=== PATIENT | female | born 1935 | race Caucasian/White ===

== ENCOUNTER 2017-09-10 20:16 | Emergency (ER) | payer OTHER ==
[2017-09-10] MEDS ORDERED: SOLIFENACIN SUCCIN 5 MG TAB ONE (21:40)
--- NOTE | 2017-09-10 21:50 | RAD REPORT ---
EXAM DESCRIPTION: Leo Single View09/10/2017 9:27 pm CLINICAL HISTORY: Chest pain COMPARISON: April 2017 FINDINGS: The lungs appear clear of acute infiltrate. The heart is mildly enlarged IMPRESSION: No acute abnormalities displayed
[2017-09-10 21:58] LABS: Absolute Lymphocytes (CBC) 1.1 K/uL (0.7-4.9); Absolute Monocytes 0.7 K/uL (0.1-1.3); Absolute Neutrophil 5.4 K/uL (1.8-8.0); Basophils % 0.9 % (0-1.3); Eosinophils % 1.9 % (0-4.4); Hematocrit 31.5 % (36.0-45.0); Lymphocytes % 14.3 % (15.3-44.8); MCH 29.4 pg (27.0-35.0); MCV 87.9 fL (80-100); MPV 8.1 fL (7.6-11.3); Monocytes % 9.7 % (3.3-12.3); RBC Red Blood Cell Count 3.58 M/uL (3.86-4.86)
[2017-09-10 22:04] LABS: Protime INR 1.23
[2017-09-10 22:17] LABS: Albumin 3.6 g/dL (3.2-5.5); Bilirubin Direct 0.1 mg/dL (0-0.2); Bilirubin Total 0.6 mg/dL (0.3-1.2); Magnesium 1.8 mg/dL (1.8-2.5); Protein, Total 6.6 g/dL (6.0-8.3)
[2017-09-10 22:20] LABS: CKMB Creatine Kinase MB 5.4 ng/ml (0.3-4.0)
[2017-09-10 22:47] LABS: Thyroid Stimulating Hormone 1.58 uIU/mL (0.34-5.60)
[2017-09-10 23:01] LABS: Potassium 4.2 mEq/L (3.6-5.0)
[2017-09-10] MEDS ORDERED: DOXAZOSIN 4 MG TAB ONE (23:28)
[2017-09-10] MEDS ORDERED: DOXAZOSIN 2 MG TAB ONE (23:28)
--- NOTE | 2017-09-11 00:41 | EDPHYS ---
Physician Documentation [facility] Name: Joaquina Theodore Age: 82 yrs Sex: Female : 1935 Arrival Date: 09/10/2017 Time: 20:23 Bed 28 Private MD: ED Physician Fabrice Busby HPI: 09/10 21:19 This 82 yrs old Female presents to ER via EMS with unknown complaint. pkl 21:19 The patient presents with decreased mental status. Onset: The symptoms/episode pkl began/occurred just prior to arrival. Possible causes: low blood sugar, the patient uses insulin, the patient takes and oral hypoglycemic. The patient has experienced similar episodes in the past, a few times. Historical: - Allergies: 20:42 Lyrica; rk2 20:42 Neurontin; rk2 - PMHx: 20:42 Diabetes - IDDM; neuropathy; Hypertension; rk2 - Immunization history:: Pneumococcal vaccine status is unknown, Flu vaccine status is unknown. - Social history:: Smoking status: unknown. ROS: 21:19 Eyes: Negative for injury, pain, redness, and discharge, ENT: Negative for injury, pkl pain, and discharge, Neck: Negative for injury, pain, and swelling, Cardiovascular: Negative for chest pain, palpitations, and edema, Respiratory: Negative for shortness of breath, cough, wheezing, and pleuritic chest pain, Abdomen/GI: Negative for abdominal pain, nausea, vomiting, diarrhea, and constipation, Back: Negative for injury and pain, : Negative for injury, bleeding, discharge, and swelling, MS/Extremity: Negative for injury and deformity, Skin: Negative for injury, rash, and discoloration. 21:19 Neuro: Positive for altered mental status. Exam: 21:19 Head/Face: Normocephalic, atraumatic. Eyes: Pupils equal round and reactive to light, pkl extra-ocular motions intact. Lids and lashes normal. Conjunctiva and sclera are non-icteric and not injected. Cornea within normal limits. Periorbital areas with no swelling, redness, or edema. ENT: Nares patent. No nasal discharge, no septal abnormalities noted. Tympanic membranes are normal and external auditory canals are clear. Oropharynx with no redness, swelling, or masses, exudates, or evidence of obstruction, uvula midline. Mucous membranes moist. Neck: Trachea midline, no thyromegaly or masses palpated, and no cervical lymphadenopathy. Supple, full range of motion without nuchal rigidity, or vertebral point tenderness. No Meningismus. Chest/axilla: Normal chest wall appearance and motion. Nontender with no deformity. No lesions are appreciated. Cardiovascular: Regular rate and rhythm with a normal S1 and S2. No gallops, murmurs, or rubs. Normal PMI, no JVD. No pulse deficits. Respiratory: Lungs have equal breath sounds bilaterally, clear to auscultation and percussion. No rales, rhonchi or wheezes noted. No increased work of breathing, no retractions or nasal flaring. Abdomen/GI: Soft, non-tender, with normal bowel sounds. No distension or tympany. No guarding or rebound. No evidence of tenderness throughout. Back: No spinal tenderness. No costovertebral tenderness. Full range of motion. Skin: Warm, dry with normal turgor. Normal color with no rashes, no lesions, and no evidence of cellulitis. MS/ Extremity: Pulses equal, no cyanosis. Neurovascular intact. Full, normal range of motion. 21:19 Neuro: Orientation: is normal, Mentation: is normal, Cranial nerves: grossly normal, Cerebellar function: normal finger to nose testing, heel to oro testing is normal, Motor: is normal, Sensation: is normal. Vital Signs: 20:42 BP 126 / 48; Pulse 58; Resp 17; Pulse Ox 98% on R/A; rk2 22:04 Pulse 54; Resp 16; Pulse Ox 97% ; tl3 22:32 BP 191 / 75; Pulse 53; Resp 17; Pulse Ox 98% ; rk2 23:00 BP 170 / 70; Pulse 62; Resp 17; Pulse Ox 99% on R/A; rk2 09/11 00:55 BP 182 / 84; Pulse 64; Resp 17; Pulse Ox 97% on R/A; rk2 MDM: 09/10 20:48 Patient medically screened. pkl 09/11 00:38 Data reviewed: vital signs, nurses notes, lab test result(s), EKG, radiologic studies, pkl plain films. ED course: Patient alert and not in any distress. Ambulate without any difficulty. . 09/10 21:14 Order name: Basic Metabolic Panel; Complete Time: 23:03 pkl 09/10 21:14 Order name: BNP; Complete Time: 22:23 [facility] 09/10 21:14 Order name: CBC with Diff; Complete Time: 22:23 [facility] 09/10 21:14 Order name: Ckmb; Complete Time: 23:03 [facility] 09/10 21:14 Order name: CPK; Complete Time: 23:03 [facility] 09/10 21:14 Order name: LFT's; Complete Time: 23:03 [facility] 09/10 21:14 Order name: Magnesium; Complete Time: 23:03 [facility] 09/10 21:14 Order name: PT-INR; Complete Time: 22:23 [facility] 09/10 21:14 Order name: Ptt, Activated; Complete Time: :23 [facility] 09/10 21:14 Order name: Troponin (emerg Dept Use Only); Complete Time: : [facility] 09/10 21:14 Order name: Hemoglobin A1c [facility] 09/10 21:14 Order name: TSH; Complete Time: 23:03 [facility] 09/10 22:28 Order name: Glucose, Ancillary Testing; Complete Time: 23:01 EDDC 09/10 22:28 Order name: Glucose, Ancillary Testing; Complete Time: 23:01 EDMS 09/10 21:14 Order name: XRAY Chest (1 view); Complete Time: 22:23 [facility] 09/10 21:14 Order name: EKG; Complete Time: 21:14 [facility] 09/10 21:14 Order name: Cardiac monitoring; Complete Time: 21:58 [facility] 09/10 21:14 Order name: EKG - Nurse/Tech; Complete Time: 22:02 [facility] 09/10 21:14 Order name: IV Saline Lock; Complete Time: :52 [facility] 09/10 21:14 Order name: Labs collected and sent; Complete Time: 21:52 [facility] 09/10 21:14 Order name: O2 Per Protocol; Complete Time: :52 [facility] 09/10 23:11 Order name: Glucose, Ancillary Testing EDDC 09/11 00:13 Order name: Urine Dipstick--Ancillary (enter results); Complete Time: 01:09 2 09/11 00:25 Order name: Glucose, Ancillary Testing; Complete Time: 00:41 EDMS 09/10 21:14 Order name: O2 Sat Monitoring; Complete Time: 21:52 [facility] 09/10 21:14 Order name: Urine Dipstick-Ancillary (obtain specimen); Complete Time: 00:39 pkl 09/10 21:14 Order name: Accucheck: q hourly; Complete Time: 22:02 pkl Administered Medications: 09/10 21:13 CANCELLED (Other Intervention Used): Myrbetriq 25 mg PO once; swallow whole; do not bb crush, chew, break, dissolve, or cut 22:00 Drug: Vesicare 10 mg Route: PO; 3 09/11 00:42 Follow up: Response: No adverse reaction 2 09/10 22:00 Drug: NS 0.9% 1000 ml Route: IV; Rate: 125 ml/hr; Site: right hand; 3 09/11 00:42 Follow up: IV Status: Completed infusion rk2 00:42 Follow up: Response: No adverse reaction 2 09/10 23:25 Drug: Doxazosin 6 mg Route: PO; rk2 09/11 00:41 Follow up: Response: No adverse reaction; Blood pressure is lowered 2 09/10 23:26 CANCELLED (Not available ): Benicar 40 mg PO once rk2 23:27 CANCELLED (Not available ): Myrbetriq 50 mg PO once; swallow whole; do not crush, chew, rk2 break, dissolve, or cut Point of Care Testing: Blood Glucose: 20:37 Blood Glucose: 187 mg/dL; rk2 21:50 Blood Glucose: 131 mg/dL; tl3 23:07 Blood Glucose: 145 mg/dL; rk2 09/11 00:24 Blood Glucose: 184 mg/dL; rk2 Ranges: Critical Glucose Levels:Adult <50 mg/dl or >400 mg/dl <40 mg/dl or >180 mg/dl Disposition: 09/11/17 00:40 Discharged to Home. Impression: Hypoglycemia episode. - Condition is Stable. - Medication Reconciliation Form, Thank You Letter, Antibiotic Education, Prescription Opioid Use form. - Follow up: Private Physician; When: 1 - 2 days; Reason: Re-evaluation by your physician. - Problem is new. - Symptoms have improved. Signatures: Dispatcher [employer] EDFabrice Falcon MD MD pkl Ballard, Brenda RN RN Angelica Tijerina RN RN rk2 Adelaide, Chari, RN RN tl3 Corrections: (The following items were deleted from the chart) 09/10 21:13 21:12 Myrbetriq Extended Release 24 hour Tablet 25 mg PO once; swallow whole; do not bb crush, chew, break, dissolve, or cut ordered. 22:59 Benicar 40 mg PO once ordered. rk2 rk2 : 21:13 Myrbetriq Extended Release 24 hour Tablet 50 mg PO once; swallow whole; do not rk2 crush, chew, break, dissolve, or cut ordered. 22:02 Myrbetriq Extended Release 24 hour Tablet 50 mg PO once; swallow whole; do not rk2 crush, chew, break, dissolve, or cut ordered. tl3
--- NOTE | 2017-09-11 00:41 | ER ---
Nurse's Notes [facility] Name: Joaquina Theodore Age: 82 yrs Sex: Female : 1935 Arrival Date: 09/10/2017 Time: 20:23 Bed 28 Private MD: Diagnosis: Hypoglycemia episode Presentation: 09/10 20:39 Presenting complaint: EMS states: Pt. arrived by EMS, was found ALOC in her car in rk2 front of [facility]... Per EMS BS \T\ that time was 41. D50 and D10 was given. Pt. became oriented once she was in route to hospital. Upon arrival to ED FSBG noted to be 187. Pt. has hx of IDDM. Transition of care: patient was not received from another setting of care. Onset of symptoms. Care prior to arrival: IV initiated. 20 GA, in the right hand, Glucose check: 41. 20:39 Method Of Arrival: EMS: [facility] rk2 20:39 Acuity: DEYVI 3 rk2 Triage Assessment: 20:42 General: Appears in no apparent distress. obese, well groomed, well developed, well rk2 nourished, Behavior is uncooperative. Pain: Denies pain. Historical: - Allergies: 20:42 Lyrica; rk2 20:42 Neurontin; rk2 - PMHx: 20:42 Diabetes - IDDM; neuropathy; Hypertension; rk2 - Immunization history:: Pneumococcal vaccine status is unknown, Flu vaccine status is unknown. - Social history:: Smoking status: unknown. Screenin:58 Abuse screen: Denies threats or abuse. Nutritional screening: No deficits noted. tl3 Tuberculosis screening: No symptoms or risk factors identified. Fall Risk None identified. Assessment: 21:30 Reassessment: Pt. resting in room with family \T\ bedside. Pt. appears to be in no rk2 obvious distress. Alert and oriented. Pt. was given orange juice, crackers and peanut butter. 23:15 Reassessment: Pt. resting in room \T\ this time... family \T\ bedside. Pt. is alert and rk 2 oriented. Was given crackers and peanut butter, juice. Pt. appears to be in no obvious distress \T\ this time. 09/11 00:36 Reassessment: Ambulated pt. with walker; which pt. normally uses \T\ home. Pt. is full rk2 weight bearing and ambulated without difficulty. Vital Signs: 09/10 20:42 BP 126 / 48; Pulse 58; Resp 17; Pulse Ox 98% on R/A; rk2 22:04 Pulse 54; Resp 16; Pulse Ox 97% ; tl3 22:32 BP 191 / 75; Pulse 53; Resp 17; Pulse Ox 98% ; rk2 23:00 BP 170 / 70; Pulse 62; Resp 17; Pulse Ox 99% on R/A; rk2 09/11 00:55 BP 182 / 84; Pulse 64; Resp 17; Pulse Ox 97% on R/A; rk2 ED Course: 09/10 20:23 Patient arrived in ED. rk2 20:39 Angelica Lyons RN is Primary Nurse. rk2 20:41 Triage completed. rk2 20:42 Arm band placed on right wrist. rk2 20:47 Fabrice Busby MD is Attending Physician. pkl 21:25 XRAY Chest (1 view) In Process Unspecified. EDMS 21:50 No provider procedures requiring assistance completed. Maintain EMS IV. Dressing tl3 intact. Good blood return noted. Site clean \T\ dry. Gauge \T\ site: 20 g to right hand. 21:58 Patient has correct armband on for positive identification. Placed in gown. Bed in low tl3 position. Call light in reach. Side rails up X2. Adult w/ patient. Warm blanket given. 21:58 Initial lab(s) drawn, by me, sent to lab. tl3 22:02 TSH Sent. tl3 22:02 Hemoglobin A1c Sent. tl3 22:02 Magnesium Sent. tl3 22:02 PT-INR Sent. tl3 22:02 Ptt, Activated Sent. tl3 22:02 Troponin (emerg Dept Use Only) Sent. tl3 22:03 Basic Metabolic Panel Sent. tl3 22:03 BNP Sent. tl3 22:03 Ckmb Sent. tl3 22:03 CPK Sent. tl3 22:03 LFT's Sent. tl3 09/11 01:02 IV discontinued. rk2 Administered Medications: 09/10 21:13 CANCELLED (Other Intervention Used): Myrbetriq 25 mg PO once; swallow whole; do not bb crush, chew, break, dissolve, or cut 22:00 Drug: Vesicare 10 mg Route: PO; 3 09/11 00:42 Follow up: Response: No adverse reaction rk2 09/10 22:00 Drug: NS 0.9% 1000 ml Route: IV; Rate: 125 ml/hr; Site: right hand; tl3 09/11 00:42 Follow up: IV Status: Completed infusion rk2 00:42 Follow up: Response: No adverse reaction rk2 09/10 23:25 Drug: Doxazosin 6 mg Route: PO; rk2 09/11 00:41 Follow up: Response: No adverse reaction; Blood pressure is lowered rk2 09/10 23:26 CANCELLED (Not available ): Benicar 40 mg PO once rk2 23: CANCELLED (Not available ): Myrbetriq 50 mg PO once; swallow whole; do not crush, chew, rk2 break, dissolve, or cut Point of Care Testing: Blood Glucose: 20:37 Blood Glucose: 187 mg/dL; rk2 21:50 Blood Glucose: 131 mg/dL; tl3 23:07 Blood Glucose: 145 mg/dL; rk2 09/11 00:24 Blood Glucose: 184 mg/dL; rk2 Ranges: Outcome: 00:40 Discharge ordered by . gurmeet 01:02 Discharged to home via wheelchair. rk2 01:02 Condition: good 01:02 Discharge instructions given to patient. 01:03 Patient left the ED. rk2 Signatures: Dispatcher [employer] Fabrice Guaman MD MD pkl Kidder, Rhonda RN RN rk2 Chari Bryson RN RN tl3 Jessica Quinonez RN bb
[2017-09-11 01:01] LABS: Urine Blood TRACE (NEG); Urine Glucose TRACE (NEG); Urine Protein 1+ (NEG); Urine Specific Gravity 1.015 (1.005-1.030); Urine pH 5.5 (5.0-7.0)
[2017-09-11 12:50] LABS: A1c Component 0.54 mg/dL; Hemoglobin A1c 6.9 % (4-6.0)
--- NOTE | 2017-09-11 16:29 | EKG ---
Test Date: 2017-09-10 Test Time: 22:09:29 Welder Railcar Mechanic: ERIKA MEASUREMENT RESULTS: Intervals: Rate: 55 NC: 162 QRSD: 88 QT: 482 QTc: 461 [place]: P: 6 NC: 162 QRS: -3 T: 62 INTERPRETIVE STATEMENTS: Sinus bradycardia Possible Left atrial enlargement Borderline ECG Compared to ECG 04/24/2017 12:20:37 Left anterior fascicular block no longer present Electronically Signed On 09-11-17 16:25:14 CDT by Alex Palomo
== END 2017-09-11 01:03 | disposition home or self-care (01) ==
LOC: ER 20:16
DX: Z88.8 Allergy status to other drugs, medicaments and biological substances; I10 Essential (primary) hypertension; E11.649 Type 2 diabetes mellitus with hypoglycemia without coma; Z79.84 Long term (current) use of oral hypoglycemic drugs; Z79.4 Long term (current) use of insulin
CPT/HCPCS: 36415; 71045; 80048; 80076; 81003; 82550; 82553; 82962; 83036; 83735; 83880; 84443; 84484; 85025; 85610; 85730; 93005; 96360; 96361; 99284

== ENCOUNTER 2017-09-21 16:37 | Emergency (ER) | payer OTHER ==
--- NOTE | 2017-09-21 18:24 | EKG ---
Test Date: 2017-09-21 Test Time: 18:17:27 Hotel Maintenance Worker: RANDAL MEASUREMENT RESULTS: Intervals: Rate: 68 TX: 150 QRSD: 80 QT: 432 QTc: 459 [place]: P: 33 TX: 150 QRS: -38 T: 42 INTERPRETIVE STATEMENTS: Normal sinus rhythm Left axis deviation Abnormal ECG Compared to ECG 09/10/2017 22:09:29 Left-axis deviation now present Sinus bradycardia no longer present Electronically Signed On 09-21-17 18:23:46 CDT by Kam Colmenares
--- NOTE | 2017-09-21 18:48 | RAD REPORT ---
EXAM DESCRIPTION: Leo Single View09/21/2017 6:36 pm CLINICAL HISTORY: Chest pain COMPARISON: April 2017 FINDINGS: The lungs appear clear of acute infiltrate. The heart is mildly enlarged IMPRESSION: No acute abnormalities displayed
--- NOTE | 2017-09-21 18:54 | RAD REPORT ---
EXAM DESCRIPTION: CT - Head Brain Wo Cont - 09/21/2017 6:30 pm CLINICAL HISTORY: Slurred speech and confusion COMPARISON: April 2017 TECHNIQUE: Computed axial tomography of the head was obtained. IV contrast was not requested. All CT scans are performed using dose optimization technique as appropriate and may include automated exposure control or mA/KV adjustment according to patient size. FINDINGS: An intracranial bleed is not seen . Cerebral atrophy is present. The ventricles are mildly prominent No extra-axial fluid collection is noted. Fluid within the sinuses/ mastoids is not seen. IMPRESSION: Mild prominence of the ventricles probably related to white matter atrophy. Normal press ure hydrocephalus can have this appearance and should be correlated clinically.
[2017-09-21 19:11] LABS: Absolute Lymphocytes (CBC) 0.7 K/uL (0.7-4.9); Absolute Monocytes 0.5 K/uL (0.1-1.3); Absolute Neutrophil 6.5 K/uL (1.8-8.0); Basophils % 0.5 % (0-1.3); Eosinophils % 0.4 % (0-4.4); Lymphocytes % 9.2 % (15.3-44.8); MCH 29.2 pg (27.0-35.0); MCV 88.2 fL (80-100); Monocytes % 6.9 % (3.3-12.3); RBC Red Blood Cell Count 3.63 M/uL (3.86-4.86)
[2017-09-21 19:22] LABS: Potassium 4.5 mEq/L (3.6-5.0)
[2017-09-21 19:26] LABS: Magnesium 1.9 mg/dL (1.8-2.5)
[2017-09-21 19:27] LABS: Protime INR 1.14
[2017-09-21 19:28] LABS: Albumin 3.5 g/dL (3.2-5.5); Bilirubin Direct 0.1 mg/dL (0-0.2); Bilirubin Total 0.5 mg/dL (0.3-1.2); Protein, Total 6.2 g/dL (6.0-8.3)
[2017-09-21] MEDS ORDERED: CARVEDILOL 6.25 MG TAB ONE (19:38)
[2017-09-21 19:41] LABS: Urine Blood TRACE (NEG); Urine Glucose TRACE (NEG); Urine Protein 1+ (NEG)
[2017-09-21] MEDS ORDERED: DOXAZOSIN 2 MG TAB ONE (19:55)
[2017-09-21] MEDS ORDERED: CLOPIDOGREL 75 MG TABLET ONE (19:55)
[2017-09-21] MEDS ORDERED: APIXABAN 5 MG TABLET ONE (19:59)
--- NOTE | 2017-09-21 21:18 | ER ---
Nurse's Notes [facility] Name: Joaquina Theodore Age: 82 yrs Sex: Female : 1935 Arrival Date: 09/21/2017 Time: 16:45 Bed 26 Private MD: Diagnosis: Hypoglycemia, unspecified Presentation: 09/21 16:47 Presenting complaint: Patient states: Brother in law found patient laying on floor. Pt ss states, "I was on the floor a long time." On EMS arrival, patient was confused, slurred speech . BGL is 56 on arrival to pt's home. After administering 250 mL of D10, pt's repeat blood sugar was 454. Pt is awake and alert on arrival to ED. Transition of care: patient was not received from another setting of care. Onset of symptoms is unknown. Care prior to arrival: Medication(s) given: 250 mL of D10 IV initiated. 18 GA, in the left antecubital area, Glucose check: 189. 16:47 Method Of Arrival: EMS: [facility] ss 16:47 Acuity: DEYVI 3 ss Historical: - Allergies: 16:50 Lyrica; ss 16:50 Neurontin; ss - PMHx: 16:50 neuropathy; Hypertension; Diabetes - IDDM; ss - Immunization history:: Adult Immunizations up to date. - Social history:: Smoking status: Patient/guardian denies using tobacco, but has a distant history of tobacco abuse. Screenin:05 Abuse screen: Denies threats or abuse. Denies injuries from another. Nutritional aj1 screening: No deficits noted. Tuberculosis screening: No symptoms or risk factors identified. 21:46 Fall Risk None identified. aj1 Assessment: 17:36 Reassessment: Patient refused blood work and CT scan until she is finished eating. aj1 18:07 Reassessment: heavy equipment technician and final operations technician at bedside, patient states that she has to go to the aj1 bathroom and does not want any testing done until she goes to the bathroom, offered to assist patient to the bathroom, patient becomes irritated and states "well they usually bring the potty into my room, why cant you do that?" Explained to patient that I would be more more than happy to bring her a bedside commode. Patient was placed on bedside commode, patient remains irritates states she does not understand why the TRAUMA COORDINATOR has not ordered her home blood pressure medication yet, explained to patient that I would ask provider if she could take home meds, patient remains irritated states "well I already ate and I'm suppose to take it with food, by the time you get it ordered it's going to be too late!" Explained to patient that I would ask provider if she could take home medications. Patient states she needs some privacy, patient given call verma and notified to call when she is finished using the restroom. 18:18 Reassessment: Patient assisted back to bed, final operations technician at bedside performing EKG. aj1 18:25 Reassessment: EVS at patient beside mopping patient's floor. aj1 18:26 Reassessment: Patient transported to CT via stretcher. aj1 18:46 Reassessment: Patient transported back to room via stretcher, notified patient that aj1 provider okayed her taking her home medications patient states "I didn't bring them, cant you bring them to me?" Notified provider that patient did not bring her home medications and is requesting her blood pressure medication to be ordered through the ER. 19:05 General: Appears in no apparent distress. comfortable, Behavior is calm, cooperative, aj1 appropriate for age. Pain: Denies pain. Neuro: Level of Consciousness is awake, alert, obeys commands, Oriented to person, place, time, situation, Junior Electrical Engineer are equal bilaterally Moves all extremities. Speech is normal, Facial symmetry appears normal. Cardiovascular: Patient's skin is warm and dry. Respiratory: Airway is patent Respiratory effort is even, unlabored, Respiratory pattern is regular, symmetrical. GI: No signs and/or symptoms were reported involving the gastrointestinal system. : No signs and/or symptoms were reported regarding the genitourinary system. EENT: No signs and/or symptoms were reported regarding the EENT system. Derm: No signs and/or symptoms reported regarding the dermatologic system. Skin is pink, warm \\T\\ dry. normal. Musculoskeletal: No signs and/or symptoms reported regarding the musculoskeletal system. Circulation, motion, and sensation intact. 19:29 Reassessment: Patient given her BP medications, patient states that she also forgot to aj1 take her blood thinners and she would like to have those administered while she is here as well. Notified P. Marinas, TRAUMA COORDINATOR. 19:35 Reassessment: Patient requests to see Dr. Shelton before he leaves, states that she aj1 heard he was here. Notified Dr. Shelton of patient request. 19:43 Reassessment: Dr. Shelton at bedside to evaluate patient. aj1 20:03 Reassessment: Patient appears in no apparent distress at this time. No changes from aj1 previously documented assessment. Patient and/or family updated on plan of care and expected duration. Pain level reassessed. Patient is alert, oriented x 3, equal unlabored respirations, skin warm/dry/pink. 21:00 Reassessment: Patient appears in no apparent distress at this time. No changes from aj1 previously documented assessment. Patient and/or family updated on plan of care and expected duration. Pain level reassessed. Patient is alert, oriented x 3, equal unlabored respirations, skin warm/dry/pink. Vital Signs: 16:46 BP 149 / 89; Pulse 65; Resp 21; Pulse Ox 100% on R/A; Weight 86.18 kg; Height 5 ft. 2 ss in. (157.48 cm); Pain 0/10; 19:05 BP 157 / 92; Pulse 58; Resp 18; Pulse Ox 96% on R/A; aj1 20:03 BP 134 / 68; Pulse 62; Resp 18; Pulse Ox 96% on R/A; aj1 21:45 BP 183 / 75; Pulse 72; Resp 18; Pulse Ox 95% on R/A; aj1 16:46 Body Mass Index 34.75 (86.18 kg, 157.48 cm) ED Course: 16:45 Patient arrived in ED. ss 16:46 Arm band placed on left wrist. ss 16:49 Triage completed. ss 16:58 Talon Ruiz, MAEGAN is PHCP. pm1 16:58 Jaya Shelton MD is Attending Physician. pm1 17:19 Tarah Marroquin, MARY CARMEN is Primary Nurse. aj1 17:35 Radiology exam delayed due to PATIENT WANTS TO FINISH EATING BEFORE EXAM. ml 17:36 Note: Patient refusing to come down at this time due to wanting to finish her dinner. jg1 17:37 Radiology exam delayed due to. jg1 18:04 Radiology exam delayed due to pt on bedside toilet. jg1 18:21 EKG done, by final operations technician. reviewed by Talon Ruiz NP. at1 18:[address] via stretcher. nj 18:29 CT completed. Patient tolerated procedure well. Patient moved back from CT. nj 18:31 CT Head Brain wo Cont In Process Unspecified. EDMS 18:34 X-ray completed. Portable x-ray completed in exam room. Patient tolerated procedure ml well. 18:35 XRAY Chest (1 view) In Process Unspecified. EDMS 19:00 Maintain EMS IV. Dressing intact. Good blood return noted. Site clean \\T\\ dry. Gauge \\T\\ aj 1 site: 18 g left AC. 19:00 Initial lab(s) drawn, by me, sent to lab. aj1 19:05 Patient has correct armband on for positive identification. Bed in low position. Call aj1 light in reach. Side rails up X 1. 19:05 No provider procedures requiring assistance completed. aj1 21:45 IV discontinued, intact, bleeding controlled, No redness/swelling at site. Pressure aj1 dressing applied. Administered Medications: 19:27 Drug: carvedilol 25 mg Route: PO; aj1 20:02 Follow up: Response: No adverse reaction aj1 20:00 Drug: Doxazosin 6 mg Route: PO; aj1 20:25 Follow up: Response: No adverse reaction aj1 20:01 Drug: Eliquis 5 mg Route: PO; aj1 20:27 Follow up: Response: No adverse reaction aj1 20:01 Drug: PlaVIX 75 mg Route: PO; aj1 20:28 Follow up: Response: No adverse reaction aj1 Point of Care Testing: Blood Glucose: 16:46 Blood Glucose: 189 mg/dL; ss 20:23 Blood Glucose: 168 mg/dL; dh3 Ranges: Outcome: 21:17 Discharge ordered by MD. pm1 21:46 Discharged to home via wheelchair. aj1 21:46 Condition: good 21:46 Discharge instructions given to patient, family, Instructed on discharge instructions, follow up and referral plans. Demonstrated understanding of instructions, follow-up care. 21:46 Patient left the ED. aj1 Signatures: Dispatcher [employer] EDMS Tarah Marroquin RN RN aj1 Renetta Archuleta Melissa ml Smirch, Shelby, RN RN Karmen robertson, sports umpire EKG Tat1 Talon Ruiz NP TRAUMA COORDINATOR pm1 Sam Estrada Deanna 3 Corrections: (The following items were deleted from the chart) 19:07 18:30 Maintain EMS IV. Dressing intact. Good blood return noted. Site clean \\T\\ dry. aj1 Gauge \\T\\ site: 18 g left AC. aj1
--- NOTE | 2017-09-21 21:18 | EDPHYS ---
Physician Documentation [facility] Name: Joaquina Theodore Age: 82 yrs Sex: Female : 1935 Arrival Date: 09/21/2017 Time: 16:45 Bed 26 Private MD: ED Physician Jaya hSelton HPI: 09/21 19:00 This 82 yrs old Female presents to ER via EMS with complaints of Low Blood pm1 Sugar. 19:00 The patient or guardian reports hypoglycemia, that was potentially precipitated by Not pm1 eating food, Treatment prior to arrival includes: EMS administered D50. 19:00 Treatment prior to arrival includes: EMS checked blood sugar on arrival, which was 56, pm1 after treatment, the blood sugar was 454, ER arrival finger glucose test 189. Onset: The symptoms/episode began/occurred today. Associated signs and symptoms: Pertinent negatives: seizure activity. Current symptoms: In the emergency department the patient's symptoms have resolved, the patient is alert and fully oriented, has normal speech, has normal responsiveness, has no confusion. The patient has experienced similar episodes in the past, several times, Patient takes her diabetes medications without checking her blood sugars. Patient did not eat since 0430 today. Patient last took her insulin and glimepride at 1700 yesterday. Patient took Januvia at 0430. Today patient presents with contusion to the back of her head. Patient denies any headache or neck pain. Patient does not recall fall but was found on the floor by her daughter with low blood sugar. Patient was given D10 250 mL by EMS for an initial blood sugar of 56. They rechecked it in route prior to arrival and it was 454. ER arrival blood sugar was 189. Patient arrived to ER without any complaints. No chest pain, shortness of breath, dizziness, or headache. Historical: - Allergies: 16:50 Lyrica; ss 16:50 Neurontin; ss - PMHx: 16:50 neuropathy; Hypertension; Diabetes - IDDM; ss - Immunization history:: Adult Immunizations up to date. - Social history:: Smoking status: Patient/guardian denies using tobacco, but has a distant history of tobacco abuse. ROS: 19:00 Constitutional: Negative for fever, chills, and weight loss, Eyes: Negative for injury, pm1 pain, redness, and discharge, ENT: Negative for injury, pain, and discharge, Neck: Negative for injury, pain, and swelling, Cardiovascular: Negative for chest pain, palpitations, and edema, Respiratory: Negative for shortness of breath, cough, wheezing, and pleuritic chest pain, Abdomen/GI: Negative for abdominal pain, nausea, vomiting, diarrhea, and constipation, Back: Negative for injury and pain, : Negative for injury, bleeding, discharge, and swelling, MS/Extremity: Negative for injury and deformity, Skin: Negative for injury, rash, and discoloration, Neuro: Negative for headache, weakness, numbness, tingling, and seizure. Exam: 19:00 Constitutional: This is a well developed, well nourished patient who is awake, alert, pm1 and in no acute distress. Eyes: Pupils equal round and reactive to light, extra-ocular motions intact. Lids and lashes normal. Conjunctiva and sclera are non-icteric and not injected. Cornea within normal limits. Periorbital areas with no swelling, redness, or edema. ENT: Nares patent. No nasal discharge, no septal abnormalities noted. Tympanic membranes are normal and external auditory canals are clear. Oropharynx with no redness, swelling, or masses, exudates, or evidence of obstruction, uvula midline. Mucous membranes moist. Neck: Trachea midline, no thyromegaly or masses palpated, and no cervical lymphadenopathy. Supple, full range of motion without nuchal rigidity, or vertebral point tenderness. No Meningismus. Chest/axilla: Normal chest wall appearance and motion. Nontender with no deformity. No lesions are appreciated. Cardiovascular: Regular rate and rhythm with a normal S1 and S2. No gallops, murmurs, or rubs. Normal PMI, no JVD. No pulse deficits. Respiratory: Lungs have equal breath sounds bilaterally, clear to auscultation and percussion. No rales, rhonchi or wheezes noted. No increased work of breathing, no retractions or nasal flaring. Abdomen/GI: Soft, non-tender, with normal bowel sounds. No distension or tympany. No guarding or rebound. No evidence of tenderness throughout. Back: No spinal tenderness. No costovertebral tenderness. Full range of motion. Skin: Warm, dry with normal turgor. Normal color with no rashes, no lesions, and no evidence of cellulitis. MS/ Extremity: Pulses equal, no cyanosis. Neurovascular intact. Full, normal range of motion. 19:00 Head/face: Noted is contusion, that is superficial, of the right side of the back of head. 19:00 Neuro: Orientation: is normal, Mentation: is normal, Motor: is normal, moves all fours, strength is normal, strength is 5/5 in all extremities. Vital Signs: 16:46 BP 149 / 89; Pulse 65; Resp 21; Pulse Ox 100% on R/A; Weight 86.18 kg; Height 5 ft. 2 ss in. (157.48 cm); Pain 0/10; 19:05 BP 157 / 92; Pulse 58; Resp 18; Pulse Ox 96% on R/A; aj1 20:03 BP 134 / 68; Pulse 62; Resp 18; Pulse Ox 96% on R/A; aj1 21:45 BP 183 / 75; Pulse 72; Resp 18; Pulse Ox 95% on R/A; aj1 16:46 Body Mass Index 34.75 (86.18 kg, 157.48 cm) ss MDM: 17:00 Patient medically screened. pm1 17:42 Data reviewed: vital signs. Data interpreted: Pulse oximetry: on room air is 100 %. pm1 Interpretation: normal. 19:30 ED course: Patient evaluated by Dr Shelton and advised to stop taking Glimepiride due pm1 to hypoglycemia risk. 20:02 ED course: Last dosage of medications for diabetes were greater than 24 hours ago. pm1 21:14 Counseling: I had a detailed discussion with the patient and/or guardian regarding: the pm1 historical points, exam findings, and any diagnostic results supporting the discharge/admit diagnosis, lab results. 09/21 17:09 Order name: Basic Metabolic Panel; Complete Time: 19:47 pm1 09/21 17:09 Order name: CBC with Diff; Complete Time: 19:47 pm1 09/21 17:09 Order name: Hepatic Function; Complete Time: 19:47 pm1 09/21 17:09 Order name: Lipase; Complete Time: 19:47 pm1 09/21 17:24 Order name: BNP pm1 09/21 17:24 Order name: CPK; Complete Time: 19:47 pm1 09/21 17:24 Order name: Magnesium; Complete Time: 19:47 pm1 09/21 17:24 Order name: PT-INR; Complete Time: 19:47 pm1 09/21 17:24 Order name: Ptt, Activated; Complete Time: 19:47 pm1 09/21 17:24 Order name: Troponin (emerg Dept Use Only); Complete Time: 19:47 pm1 09/21 17:25 Order name: BNP B-Type Natriuretic Peptide; Complete Time: 19:47 EDMS 09/21 19:29 Order name: Urine Dipstick--Ancillary (enter results); Complete Time: 19:47 em1 09/21 20:05 Order name: Glucose, Ancillary Testing; Complete Time: 21:05 EDMS 09/21 20:23 Order name: Glucose, Ancillary Testing; Complete Time: 21:05 EDMS 09/21 16:45 Order name: Diet Regular; Complete Time: 16:46 ss 09/21 16:46 Order name: Glucose Level; Complete Time: 16:46 ss 09/21 17:09 Order name: IV Saline Lock; Complete Time: 17:20 pm1 09/21 17:09 Order name: Labs collected and sent; Complete Time: 19:08 pm1 09/21 17:09 Order name: Urine Dipstick-Ancillary (obtain specimen); Complete Time: 19:28 pm1 09/21 17:23 Order name: CT Head Brain wo Cont; Complete Time: 19:01 pm1 09/21 17:24 Order name: XRAY Chest (1 view); Complete Time: 19:01 pm1 09/21 17:24 Order name: EKG; Complete Time: 17:25 pm1 09/21 17:24 Order name: Cardiac monitoring; Complete Time: 19:04 pm1 09/21 17:24 Order name: EKG - Nurse/Tech; Complete Time: 19:05 pm1 09/21 17:24 Order name: O2 Per Protocol; Complete Time: 18:09 pm1 09/21 17:24 Order name: O2 Sat Monitoring; Complete Time: 18:09 pm1 Administered Medications: 19:27 Drug: carvedilol 25 mg Route: PO; aj1 20:02 Follow up: Response: No adverse reaction aj1 20:00 Drug: Doxazosin 6 mg Route: PO; aj1 20:25 Follow up: Response: No adverse reaction aj1 20:01 Drug: Eliquis 5 mg Route: PO; aj1 20:27 Follow up: Response: No adverse reaction aj1 20:01 Drug: PlaVIX 75 mg Route: PO; aj1 20:28 Follow up: Response: No adverse reaction aj1 Point of Care Testing: Blood Glucose: 16:46 Blood Glucose: 189 mg/dL; ss 20:23 Blood Glucose: 168 mg/dL; dh3 Ranges: Critical Glucose Levels:Adult <50 mg/dl or >400 mg/dl <40 mg/dl or >180 mg/dl Disposition: 09/21/17 21:17 Discharged to Home. Impression: Hypoglycemia, unspecified. - Condition is Stable. - Discharge Instructions: Hypoglycemia, Blood Glucose Monitoring, Adult. - Medication Reconciliation Form, Thank You Letter form. - Follow up: Emergency Department; When: As needed; Reason: Worsening of condition. Follow up: Private Physician; When: 2 - 3 days; Reason: Recheck today's complaints, Continuance of care, Re-evaluation by your physician. - Problem is new. - Symptoms have improved. Addendum: 09/24/2017 08:43 Co-signature as Attending Physician, Jaya Shelton MD I agree with the assessment and c mclean plan of care. Signatures: Dispatcher [employer] Tarah Gaston RN RN aj1 Jaya Shelton MD MD cha Smirch, Shelby RN RN Talon Fletcher NP BODY SHOP ESTIMATOR pm1 Corrections: (The following items were deleted from the chart) 09/21 21:38 19:00 The patient or guardian reports hypoglycemia, that was potentially precipitated pm1 by Not eating food, Treatment prior to arrival includes: EMS administered D50, pm1
== END 2017-09-21 21:46 | disposition home or self-care (01) ==
LOC: ER 16:37 → SUPCPDRO 16:37 → ER 21:46
DX: E11.649 Type 2 diabetes mellitus with hypoglycemia without coma (principal); I10 Essential (primary) hypertension; Z88.8 Allergy status to other drugs, medicaments and biological substances
CPT/HCPCS: 36415; 70450; 71045; 80048; 80076; 81003; 82550; 82962; 83690; 83735; 83880; 84484; 85025; 85610; 85730; 93005; 99284

== ENCOUNTER 2019-06-15 17:13 | Inpatient (IN) | payer OTHER ==
--- OUTSIDE RECORDS SUMMARY | 2019-06-15 17:16 | XMS REPORT ---
:1935 [facility] Address [address] [place] [address] Care Team Providers Name Role Phone KELLE STERLING Unavailable Unavailable Problems This patient has no known problems. Allergies, Adverse Reactions, Alerts This patient has no known allergies or adverse reactions. Medications This patient has no known medications. Encounters Start End Encounter Admission Attending Care Care Encounter Date/Time Date/Time Type Type Clinicians Facility Department ID 2019-02-24 2019-02-24 Outpatient [facility] [id number] 09:17:00 09:17:00 Results Test Description Test Time Test Comments Text Results Atomic Results Result Comments , CARDIAC, 2018-05-22 17:50:00 Reason for FINAL REPORT PATIENT ID: WITHOUT Exam:->[id number] Cardiac MRI dated 22 May 2018 INDICATION: This is a 83 year-old female with ischaemic heart disease. This study is performed in order to quantitate left ventricular function, and to determine myocardial viability and damage. Patient indicates she has a CARDIOMEMS device that was placed in an outside facility. In addition, patient indicates she had prior PCI/stent placement. TECHNIQUE: Giuliana ACHIEVA MRI scanner. Morphologic and dynamic cine imaging were performed in multiple projections before and after contrast administration. Thereafter, gadolinium was administered, which was followed by viability/scar imaging. Finally, flow quantification sequences were performed to determine the degree of valvular dysfunction. Please refer to the contrast sheet scanned in the EPIC system for the amount and route of contrast given. Scanning blood pressure was under 133/72. Patient weighs 187 pounds, with height of 63 inches. Body surface area is 1.94 sq m. FINDINGS: The chest wall and mediastinum appears unremarkable. Trace physiologic pericardial effusion is noted. The central pulmonary artery is mildly prominent; please correlate with appropriate aetiology. Limited imaging through the lungs reveals no gross abnormalities; MR is not optimised in the assessment of pulmonary parenchymal lung disease. The cardiac chambers demonstrate normal atrioventricular and ventriculoarterial concordance, and systemic and pulmonary venous return. The thoracic aorta is normal in course, caliber, and contour. There is no evidence of acute aortic pathology, such as dissection, intramural hematoma, or contained rupture. The left ventricle is normal in size, shape, and function. Quantitative values are as follows: MSE=947 cc; ESV=52 cc; stroke volume=98 cc; and ejection fraction=65%. Calculated absolute cardiac output=4.7 liters/min. Absolute left ventricular kbmb=886 grams. No imaging evidence to suggest hypertrophic cardiomyopathy or left ventricular noncompaction. The right ventricle is normal in size and function. Quantitative values are as follows: ZNR=923 cc; ESV=44 cc; stroke volume=91 cc; and ejection fraction=67%. Calculated absolute cardiac output=4.7 liters/min. Cine imaging and flow quantification reveals suggest trace mitral and tricuspid regurgitation. Aortic valve function is unremarkable. Viability/scar imaging reveals uniformly "nulled" myocardium, indicating no prior myocardial damage. All of the left ventricular myocardium appears full thickness and viable. Ventricular thrombus is not present. Flow curves suggest normal left and right atrial pressures. Left atrial enlargement is identified. Mild right atrial prominence is noted. CONCLUSION: 1. The left ventricle is normal in size, shape, and function. Ejection fraction is quantified to be 65%. Left ventricular masses within normal limits. The cine imaging, normal systolic thickening is seen throughout the left ventricular myocardium. Quantitative left ventricular functional values are as described above. Viability/scar imaging is normal. There is no evidence of prior myocardial damage. 2. The right ventricle is normal in size and function. Quantitative right ventricular functional values are as described above. 3. Left atrial prominence. Signed: Robinson Trivedi MDReport Verified Date/Time: 05/22/2018 17:50:06 Reading Location: [place] [id number] Cardiology MRI -CREATININE 2018-05-22 15:58:00 Test Item Value Reference Range Comments POC-CREATININE (LEENAAKER) (test 1.3 mg/dL 0.6-1.[address] [facility] 6720 pkhv=[id number]) [facility] [address] POC-EGFR (BEAKER) (test worp=3142) 39 mL/min/1.73M2
[2019-06-15] MEDS ORDERED: NA CHLORIDE 0.9% 1,000 ML ONE (18:58)
[2019-06-15 19:02] LABS: Basophils % 1.1 % (0-1.3); Hematocrit 33.5 % (36.0-45.0); Lymphocytes % 13.8 % (15.3-44.8); MPV 7.3 fL (7.6-11.3); RBC Red Blood Cell Count 3.77 M/uL (3.86-4.86)
[2019-06-15 19:03] LABS: Protime INR 1.32
--- NOTE | 2019-06-15 19:06 | RAD REPORT ---
EXAM DESCRIPTION: Leo Single View06/15/2019 6:14 pm CLINICAL HISTORY: cough COMPARISON: 2018 FINDINGS: The lungs appear clear of acute infiltrate. The heart is mildly enlarged IMPRESSION: No acute abnormalities displayed
[2019-06-15] MEDS ORDERED: PANTOPRAZOLE 40 MG INJ ONE (19:13)
[2019-06-15] MEDS ORDERED: CEFTRIAXONE/SWI 1gm 1 GM/10 ML SYR ONE (19:14)
[2019-06-15 19:15] LABS: Albumin 3.6 g/dL (3.4-5.0); Bilirubin Direct 0.1 mg/dL (0-0.2); Bilirubin Total 0.4 mg/dL (0.2-1.0); Magnesium 1.5 mg/dL (1.8-2.4); Potassium 3.7 mmol/L (3.5-5.1); Protein, Total 7.4 g/dL (6.4-8.2)
--- NOTE | 2019-06-15 19:31 | ER ---
Nurse's Notes [facility] Name: Joaquina Theodore Age: 84 yrs Sex: Female : 1935 Arrival Date: 06/15/2019 Time: 17:14 Bed 10 Private MD: Shelli Aernas C Diagnosis: Weakness;Urinary tract infection, site not specified;Anemia, unspecified;Diarrhea, unspecified;Type 1 diabetes mellitus;Hypomagnesemia;Retention of urine-PVR GREATER THAN 1 LITER Presentation: 06/15 17:46 Presenting complaint: Patient states: Diarrhea intermittently for several months. rb1 Denies N/V and fever. Transition of care: patient was not received from another setting of care. Onset of symptoms is unknown. 17:46 Method Of Arrival: Wheelchair rb1 17:46 Acuity: DEYVI 3 rb1 18:30 Risk Assessment: Do you want to hurt yourself or someone else? Patient reports no em desire to harm self or others. Initial Sepsis Screen: Does the patient meet any 2 criteria? No. Patient's initial sepsis screen is negative. Does the patient have a suspected source of infection? No. Patient's initial sepsis screen is negative. Care prior to arrival: None. Triage Assessment: 17:46 General: Appears in no apparent distress. comfortable, Behavior is calm, cooperative, rb1 Denies fever. Pain: Complains of pain in bilateral hips and legs Pain currently is 3 out of 10 on a pain scale. Neuro: Level of Consciousness is awake, alert, obeys commands, Oriented to person, place, time, situation. Respiratory: Reports shortness of breath on exertion Airway is patent Respiratory effort is even, unlabored, Respiratory pattern is regular, symmetrical. GI: Reports diarrhea. Derm: Skin is pink, warm \T\ dry. Musculoskeletal: Range of motion: intact in all extremities. Historical: - Allergies: 17:46 Lyrica; rb1 17:46 Neurontin; rb1 - Home Meds: 19:29 metformin 500 mg Oral tab [Active]; isosorbide mononitrate 60 mg Oral Tb24 [Active]; em pravastatin 20 mg oral tab [Active]; Cymbalta 60 mg oral cpDR [Active]; carvedilol 25 mg oral tab [Active]; Januvia 100 mg oral tab [Active]; Benicar 40 mg oral tab [Active]; clopidogrel 75 mg oral tab [Active]; Eliquis 5 mg oral tab 1 tab 2 times per day [Active]; magnesium gluconate 27.5 mg (500 mg) oral tab [Active]; furosemide 40 mg Oral tab [Active]; Vesicare 10 mg oral tab 1 tab once daily [Active]; Myrbetriq 50 mg oral Tb24 1 tab once daily [Active]; - PMHx: 17:46 Diabetes - IDDM; Hypertension; neuropathy; rb1 - PSHx: 17:46 bilateral knees; rb1 - Immunization history:: Adult Immunizations up to date. - Social history:: Smoking status: Patient/guardian denies using tobacco. - Ebola Screening: : Patient negative for fever greater than or equal to 101.5 degrees Fahrenheit, and additional compatible Ebola Virus Disease symptoms. - Family history:: not pertinent. Screenin:30 Abuse screen: Denies threats or abuse. Nutritional screening: No deficits noted. em Tuberculosis screening: No symptoms or risk factors identified. Fall Risk None identified. Assessment: 18:30 General: Appears in no apparent distress. comfortable, Behavior is calm, cooperative, em Denies fever. Pain: Complains of pain in pelvis Pain currently is 3 out of 10 on a pain scale. Neuro: Level of Consciousness is awake, alert, obeys commands, Oriented to person, place, time, situation, Appropriate for age. Cardiovascular: Denies chest pain, Capillary refill < 3 seconds Patient's skin is warm and dry. Respiratory: Airway is patent Respiratory effort is even, unlabored, Respiratory pattern is regular, symmetrical. GI: Reports diarrhea, Patient currently denies nausea, vomiting. Derm: Skin is intact, is thin, Skin is dry, Skin is pale. Musculoskeletal: Capillary refill < 3 seconds, Range of motion: intact in all extremities. 18:35 General: The previous assessment is accurate. Call light remains within reach.. ss 19:15 Reassessment: Patient appears in no apparent distress at this time. Patient and/or wh family updated on plan of care and expected duration. Pain level reassessed. Patient is alert, oriented x 3, equal unlabored respirations, skin warm/dry/pink. 19:45 Reassessment: Patient appears in no apparent distress at this time. Patient and/or wh family updated on plan of care and expected duration. Pain level reassessed. Patient is alert, oriented x 3, equal unlabored respirations, skin warm/dry/pink. PT BP elevated, notified MD Pt requesting to take home meds. Approval given by Pt took Bp meds with sister assistance. 20:30 Reassessment: Patient appears in no apparent distress at this time. No changes from previously documented assessment. Patient and/or family updated on plan of care and expected duration. Pain level reassessed. Patient is alert, oriented x 3, equal unlabored respirations, skin warm/dry/pink. Dinner provided, home meds were given by sister as per instruction from PCP Arenas she take her own meds. Pt took BP med and Diabetes med. 21:30 Reassessment: Patient appears in no apparent distress at this time. No changes from previously documented assessment. Patient and/or family updated on plan of care and expected duration. Pain level reassessed. Patient is alert, oriented x 3, equal unlabored respirations, skin warm/dry/pink. Pt refusing EKG to be done, provider notified. 22:15 Reassessment: Patient appears in no apparent distress at this time. No changes from previously documented assessment. Patient and/or family updated on plan of care and expected duration. Pain level reassessed. Patient is alert, oriented x 3, equal unlabored respirations, skin warm/dry/pink. Repositioned Pt in bed, provided additional blankets. 23:24 Reassessment: Patient appears in no apparent distress at this time. No changes from previously documented assessment. Patient and/or family updated on plan of care and expected duration. Pain level reassessed. Patient is alert, oriented x 3, equal unlabored respirations, skin warm/dry/pink. Pt transferred to bed 10 report given to Patricia LENTZ. Vital Signs: 17:46 BP 147 / 109; Pulse 68; Resp 20; Temp 98.4(TE); Pulse Ox 100% on R/A; Weight 73.48 kg; rb1 Height 5 ft. 5 in. (165.10 cm) (R); Pain 3/10; 21:00 BP 211 / 83; Pulse 62; Resp 18; Pulse Ox 99% ; wh 21:00 BP 143 / 103; Pulse 58; Resp 18; Pulse Ox 99% ; wh 17:46 Body Mass Index 26.96 (73.48 kg, 165.10 cm) [facility] ED Course: 17:14 Patient arrived in ED. as 17:14 Shelli Arenas MD is Private Physician. as 17:46 Arm band placed on left wrist. rb1 17:48 Dalton Valero LVN is Primary Nurse. em 17:48 Jaya Shelton MD is Attending Physician. alan 18:04 Triage completed. rb1 18:13 XRAY Chest (1 view) In Process Unspecified. EDMS 18:30 Patient has correct armband on for positive identification. Bed in low position. Call em light in reach. Side rails up X2. Adult w/ patient. Pulse ox on. NIBP on. 18:45 No provider procedures requiring assistance completed. Initial lab(s) drawn, by me, em sent to lab. Inserted saline lock: 20 gauge in right antecubital area, using aseptic technique. Blood collected. 18:45 T\T\S collected, blood band applied to patient. em 19:26 Shelli Arenas MD is Hospitalizing Provider. alan 20:18 CT completed. Patient tolerated procedure well. Patient moved back from CT. bq 21:09 Nicolas cath inserted, using sterile technique, 18 Fr., by me, balloon inflated, to ok gravity drainage, clamped. urine specimen collected. 23:18 Patient admitted, IV remains in place. Administered Medications: 19:07 Drug: NS 0.9% 500 ml Route: IV; Rate: bolus; Site: right antecubital; 20:06 Follow up: Response: No adverse reaction; IV Status: Completed infusion 19:19 Drug: ProTONIX 40 mg Route: IVP; Site: right antecubital; 20:05 Follow up: Response: No adverse reaction 19:20 Drug: Rocephin 1 grams Route: IV; Rate: per protocol; Site: right antecubital; 20:05 Follow up: Response: No adverse reaction; IV Status: Completed infusion 20:06 Drug: NS 0.9% 1000 ml Route: IV; Rate: 125 ml/hr; Site: right antecubital; 21:13 Follow up: Response: No adverse reaction; IV Status: Infusion continued upon admission 21:18 Drug: Magnesium Sulfate 2 grams Route: IVPB; Infused Over: 2 hrs; Site: right antecubital; 22:16 Follow up: Response: No adverse reaction; IV Status: Completed infusion Output: 21:09 Urine: 1200ml (Nicolas); Total: 1200ml. ok Outcome: 19:29 Decision to Hospitalize by Provider. [facility] 20:45 Admitted to ER Hold. Please see [facility] for further documentation. 23:18 Admitted to ER Hold. Please see [facility] for further documentation. 23:18 Admitted to Report called to Patricia LENTZ 23:18 Condition: stable 23:18 Instructed on the need for admit. 06/16 13:26 Patient left the ED. Signatures: Dispatcher [employer] Jaya Salazar MD MD cha Quilty, Betty bq Munoz, Edgar, SOFTWARE PROGRAMMER SOFTWARE PROGRAMMER Yuni Trevino Shelby, RN RN Xochilt Billings, MARY CARMEN RN Natalia Lares RN RN Portia Florez ok Christofer Licona
--- NOTE | 2019-06-15 19:31 | EDPHYS ---
Physician Documentation [facility] Name: Joaquina Theodore Age: 84 yrs Sex: Female : 1935 Arrival Date: 06/15/2019 Time: 17:14 Bed 10 Private MD: Shelli Arenas C ED Physician Jaya Shelton HPI: 06/15 19:07 This 84 yrs old Female presents to ER via Wheelchair with complaints of alan Diarrhea. 19:07 The patient presents to the emergency department with nausea, diarrhea. Onset: The alan symptoms/episode began/occurred 3 day(s) ago. Possible causes: unknown. The symptoms are aggravated by nothing. The symptoms are alleviated by nothing. Associated signs and symptoms: The patient has no apparent associated signs or symptoms. Severity of symptoms: At their worst the symptoms were mild in the emergency department the symptoms are unchanged. The patient has experienced similar episodes in the past, multiple times. Historical: - Allergies: 17:46 Lyrica; rb1 17:46 Neurontin; rb1 - Home Meds: 19:29 metformin 500 mg Oral tab [Active]; isosorbide mononitrate 60 mg Oral Tb24 [Active]; em pravastatin 20 mg oral tab [Active]; Cymbalta 60 mg oral cpDR [Active]; carvedilol 25 mg oral tab [Active]; Januvia 100 mg oral tab [Active]; Benicar 40 mg oral tab [Active]; clopidogrel 75 mg oral tab [Active]; Eliquis 5 mg oral tab 1 tab 2 times per day [Active]; magnesium gluconate 27.5 mg (500 mg) oral tab [Active]; furosemide 40 mg Oral tab [Active]; Vesicare 10 mg oral tab 1 tab once daily [Active]; Myrbetriq 50 mg oral Tb24 1 tab once daily [Active]; - PMHx: 17:46 Diabetes - IDDM; Hypertension; neuropathy; rb1 - PSHx: 17:46 bilateral knees; rb1 - Immunization history:: Adult Immunizations up to date. - Social history:: Smoking status: Patient/guardian denies using tobacco. - Ebola Screening: : Patient negative for fever greater than or equal to 101.5 degrees Fahrenheit, and additional compatible Ebola Virus Disease symptoms. - Family history:: not pertinent. ROS: 19:07 Constitutional: Negative for fever, chills, and weight loss, Eyes: Negative for injury, alan pain, redness, and discharge, ENT: Negative for injury, pain, and discharge, Neck: Negative for injury, pain, and swelling, Cardiovascular: Negative for chest pain, palpitations, and edema, Respiratory: Negative for shortness of breath, cough, wheezing, and pleuritic chest pain, Back: Negative for injury and pain, : Negative for injury, bleeding, discharge, and swelling, MS/Extremity: Negative for injury and deformity, Psych: Negative for depression, anxiety, suicide ideation, homicidal ideation, and hallucinations, Allergy/Immunology: Negative for hives, rash, and allergies, Endocrine: Negative for neck swelling, polydipsia, polyuria, polyphagia, and marked weight changes. 19:07 Abdomen/GI: Positive for diarrhea. 19:07 Neuro: Positive for weakness. Exam: 19:10 Constitutional: This is a well developed, well nourished patient who is awake, alert, alan and in no acute distress. Head/Face: Normocephalic, atraumatic. Eyes: Pupils equal round and reactive to light, extra-ocular motions intact. Lids and lashes normal. Conjunctiva and sclera are non-icteric and not injected. Cornea within normal limits. Periorbital areas with no swelling, redness, or edema. ENT: Nares patent. No nasal discharge, no septal abnormalities noted. Tympanic membranes are normal and external auditory canals are clear. Oropharynx with no redness, swelling, or masses, exudates, or evidence of obstruction, uvula midline. Mucous membranes moist. Neck: Trachea midline, no thyromegaly or masses palpated, and no cervical lymphadenopathy. Supple, full range of motion without nuchal rigidity, or vertebral point tenderness. No Meningismus. Chest/axilla: Normal chest wall appearance and motion. Nontender with no deformity. No lesions are appreciated. Cardiovascular: Regular rate and rhythm with a normal S1 and S2. No gallops, murmurs, or rubs. Normal PMI, no JVD. No pulse deficits. Respiratory: Lungs have equal breath sounds bilaterally, clear to auscultation and percussion. No rales, rhonchi or wheezes noted. No increased work of breathing, no retractions or nasal flaring. Back: No spinal tenderness. No costovertebral tenderness. Full range of motion. Female : Normal external genitalia. MS/ Extremity: Pulses equal, no cyanosis. Neurovascular intact. Full, normal range of motion. Psych: Awake, alert, with orientation to person, place and time. Behavior, mood, and affect are within normal limits. 19:10 Abdomen/GI: Inspection: distension, Bowel sounds: normal, Palpation: Liver: no appreciated palpable abnormalities, Hernia: not appreciated. Vital Signs: 17:46 BP 147 / 109; Pulse 68; Resp 20; Temp 98.4(TE); Pulse Ox 100% on R/A; Weight 73.48 kg; rb1 Height 5 ft. 5 in. (165.10 cm) (R); Pain 3/10; 21:00 BP 211 / 83; Pulse 62; Resp 18; Pulse Ox 99% ; wh 21:00 BP 143 / 103; Pulse 58; Resp 18; Pulse Ox 99% ; wh 17:46 Body Mass Index 26.96 (73.48 kg, 165.10 cm) rb1 MDM: 17:50 Patient medically screened. [facility] 19:11 Data reviewed: vital signs, nurses notes, lab test result(s), EKG, radiologic studies, [facility] CT scan, plain films. 06/15 17:50 Order name: Basic Metabolic Panel; Complete Time: 19:25 [facility] 06/15 17:50 Order name: CBC with Diff; Complete Time: 19:25 [facility] 06/15 17:50 Order name: LFT's; Complete Time: 19:25 [facility] 06/15 17:50 Order name: Magnesium; Complete Time: 19:25 [facility] 06/15 17:50 Order name: NT PRO-BNP; Complete Time: 19:25 [facility] 06/15 17:50 Order name: PT-INR; Complete Time: 19:25 [facility] 06/15 17:50 Order name: Troponin (emerg Dept Use Only); Complete Time: 21:13 [facility] 06/15 17:50 Order name: Lipase; Complete Time: 21:13 [facility] 06/15 17:50 Order name: Urine Culture [facility] 06/15 17:50 Order name: Fecal Leukocyte Stain [facility] 06/15 17:50 Order name: Stool Culture [facility] 06/15 19:00 Order name: Type And Screen; Complete Time: 21:13 06/15 21:19 Order name: Urine Dipstick--Ancillary (enter results) cm6 06/15 21:40 Order name: Urine Dipstick-Ancillary [facility] 06/15 17:50 Order name: XRAY Chest (1 view); Complete Time: 19:25 [facility] 06/15 19:12 Order name: CT Abd/Pelvis - Without Contrast: no iv, no po [facility] 06/15 20:56 Order name: CT; Complete Time: 21:13 EDTN 06/16 00:12 Order name: Troponin I [facility] 06/16 04:19 Order name: CBC with Automated Diff EDTN 06/16 04:21 Order name: Basic Metabolic Panel EDTN 06/16 04:27 Order name: Troponin I EDTN 06/16 08:27 Order name: Glucose, Ancillary Testing EDTN 06/16 11:18 Order name: RAD EDMS 06/16 11:18 Order name: RAD MS 06/16 11:22 Order name: RAD EDMS 06/16 11:33 Order name: RAD EDMS 06/16 11:33 Order name: RAD EDMS 06/16 11:33 Order name: RAD EDMS 06/16 11:42 Order name: RAD MS 06/16 12:23 Order name: Glucose, Ancillary Testing [facility] 06/15 17:50 Order name: EKG; Complete Time: 17:51 [facility] 06/15 17:50 Order name: Cardiac monitoring; Complete Time: 19:07 [facility] 06/15 17:50 Order name: EKG - Nurse/Tech; Complete Time: 19:07 [facility] 06/15 17:50 Order name: IV Saline Lock; Complete Time: 18:50 [facility] 06/15 17:50 Order name: Labs collected and sent; Complete Time: 18:50 [facility] 06/15 17:50 Order name: O2 Per Protocol; Complete Time: 18:50 [facility] 06/15 17:50 Order name: O2 Sat Monitoring; Complete Time: 18:50 [facility] 06/15 17:50 Order name: Urine Dipstick-Ancillary (obtain specimen); Complete Time: 18:50 [facility] 06/15 19:03 Order name: Nicolas; Complete Time: 21:13 [facility] Administered Medications: 19:07 Drug: NS 0.9% 500 ml Route: IV; Rate: bolus; Site: right antecubital; 20:06 Follow up: Response: No adverse reaction; IV Status: Completed infusion 19:19 Drug: ProTONIX 40 mg Route: IVP; Site: right antecubital; 20:05 Follow up: Response: No adverse reaction 19:20 Drug: Rocephin 1 grams Route: IV; Rate: per protocol; Site: right antecubital; 20:05 Follow up: Response: No adverse reaction; IV Status: Completed infusion 20:06 Drug: NS 0.9% 1000 ml Route: IV; Rate: 125 ml/hr; Site: right antecubital; 21:13 Follow up: Response: No adverse reaction; IV Status: Infusion continued upon admission 21:18 Drug: Magnesium Sulfate 2 grams Route: IVPB; Infused Over: 2 hrs; Site: right antecubital; 22:16 Follow up: Response: No adverse reaction; IV Status: Completed infusion Disposition: 06/15/19 19:29 Hospitalization ordered by Shelli Arenas for Inpatient Admission. Preliminary diagnosis are Weakness, Urinary tract infection, site not specified, Anemia, unspecified, Diarrhea, unspecified, Type 1 diabetes mellitus, Hypomagnesemia, Retention of urine - PVR GREATER THAN 1 LITER. - Bed requested for Telemetry/MedSurg (Inpatient). - Status is Inpatient Admission. hb - Condition is Fair. - Problem is new. - Symptoms have improved. UTI on Admission? Yes Signatures: Dispatcher [employer] Janeen Maxwell Corey, MD MD cha Munoz, Edgar, BAR WAITER/WAITRESS BAR WAITER/WAITRESS Xochilt Parish, MARY CARMEN LENTZ [facility] Natalia Miles RN RN [facility] Adithya Santiago RN RN ja1 Corrections: (The following items were deleted from the chart) 19:43 19:29 Hospitalization Ordered by A Deepa GROSS for Inpatient Admission. Preliminary kori diagnosis is Weakness; Urinary tract infection, site not specified; Anemia, unspecified; Diarrhea, unspecified; Type 1 diabetes mellitus. Bed requested for Telemetry/MedSurg (Inpatient). Status is Inpatient Admission. Condition is Fair. Problem is new. Symptoms have improved. UTI on Admission? Yes. alan 19:52 19:43 06/15/2019 19:29 Hospitalization Ordered by A Deepa GROSS for Inpatient Admission. [facility] Preliminary diagnosis is Weakness; Urinary tract infection, site not specified; Anemia, unspecified; Diarrhea, unspecified; Type 1 diabetes mellitus. Bed requested for [facility] ER HOLD. Status is Inpatient Admission. Condition is Fair. Problem is new. Symptoms have improved. UTI on Admission? Yes. [facility] 21:14 19:52 06/15/2019 19:29 Hospitalization Ordered by A Deepa GROSS for Inpatient Admission. alan Preliminary diagnosis is Weakness; Urinary tract infection, site not specified; Anemia, unspecified; Diarrhea, unspecified; Type 1 diabetes mellitus; Hypomagnesemia. Bed requested for [facility] ER HOLD. Status is Inpatient Admission. Condition is Fair. Problem is new. Symptoms have improved. UTI on Admission? Yes. [facility] 06/16 11:18 06/15 21:14 06/15/2019 19:29 Hospitalization Ordered by A Deepa GROSS for Inpatient bd Admission. Preliminary diagnosis is Weakness; Urinary tract infection, site not specified; Anemia, unspecified; Diarrhea, unspecified; Type 1 diabetes mellitus; Hypomagnesemia; Retention of urine - PVR GREATER THAN 1 LITER. Bed requested for [facility] ER HOLD. Status is Inpatient Admission. Condition is Fair. Problem is new. Symptoms have improved. UTI on Admission? Yes. [facility] 06/16 13:26 11:18 06/15/2019 19:29 Hospitalization Ordered by A Deepa GROSS for Inpatient Admission. hb Preliminary diagnosis is Weakness; Urinary tract infection, site not specified; Anemia, unspecified; Diarrhea, unspecified; Type 1 diabetes mellitus; Hypomagnesemia; Retention of urine - PVR GREATER THAN 1 LITER. Bed requested for Telemetry/MedSurg (Inpatient). Status is Inpatient Admission. Condition is Fair. Problem is new. Symptoms have improved. UTI on Admission? Yes. bd
[2019-06-15] MEDS ORDERED: IPRATROPIUM BROM 0.5MG/2.5ML NEB SCH (20:00)
[2019-06-15] MEDS ORDERED: LEVALBUTEROL 1.25 MG/3 ML NEB NEB SCH (20:00)
[2019-06-15 20:01] LABS: Lipase 44 U/L (73-393); Troponin (Emerg Dept Use Only) < 0.02 ng/mL (0.0-0.045)
--- NOTE | 2019-06-15 20:50 | RAD REPORT ---
EXAM DESCRIPTION: CT - Abdomen Pelvis Wo Contrast - 06/15/2019 8:15 pm CLINICAL HISTORY: Abdominal pain COMPARISON: April 2019 TECHNIQUE: Computed axial tomography of the abdomen and pelvis was obtained. IV and oral contrast we re not requested. All CT scans are performed using dose optimization technique as appropriate and may include automated exposure control or mA/KV adjustment according to patient size. FINDINGS: The evaluation of solid organs, vessels and bowel is limited secondary to the lack of con trast administration. Hepatic and splenic granulomata Atrophic pancreas Adrenals and kidneys grossly normal A filter is present within the IVC. One of the limbs protrudes 17 millimeters outside of the lumen. A ventral hernia contains fat. The neck measures 18 millimeters Bladder is distended. The appendix is normal. There is no evidence of diverticulitis. Spondylosis involves lumbar spine resulting in spinal stenosis IMPRESSION: The bladder is distended Diverticulosis without diverticulitis
[2019-06-15] MEDS ORDERED: ONDANSETRON 4 MG/2 ML VIAL IV PRN (21:15)
[2019-06-15] MEDS ORDERED: MORPHINE 4 MG/ML SYR IV PRN (21:15)
[2019-06-15] MEDS: MAGNESIUM OXIDE 400 MG TAB PO SCH (21:15)
[2019-06-15] MEDS: FAMOTIDINE 20 MG/2 ML VIAL IV SCH (21:15)
[2019-06-15] MEDS: NA CHLORIDE 0.9% 1,000 ML IV SCH (21:15)
[2019-06-15] MEDS ORDERED: Magnesium Sulfate 2gm IVPB 2 G/50 ML BAG IV ONE (21:25)
[2019-06-15 21:40] LABS: Urine Blood TRACE (NEG); Urine Glucose NEGATIVE (NEG); Urine Protein 2+ (NEG)
[2019-06-15 23:32] VITALS: BMI 26.9
[2019-06-16] MEDS ORDERED: ACETAMINOPHEN 325 MG TABLET ONE (02:29)
[2019-06-16] MEDS: ACETAMINOPHEN 325 MG TABLET PO PRN (02:31)
[2019-06-16 04:15] LABS: Absolute Lymphocytes (CBC) 1.2 K/uL (0.7-4.9); Basophils % 0.6 % (0-1.3); Hematocrit 25.9 % (36.0-45.0); Lymphocytes % 15.9 % (15.3-44.8); MPV 7.5 fL (7.6-11.3); RBC Red Blood Cell Count 2.95 M/uL (3.86-4.86)
[2019-06-16 04:20] LABS: Potassium 3.2 mmol/L (3.5-5.1)
[2019-06-16] MEDS: NA CHLORIDE 0.9% 1,000 ML IV SCH ×2 (07:15→16:35)
[2019-06-16] MEDS: FAMOTIDINE 20 MG/2 ML VIAL IV SCH ×2 (09:00→21:45)
[2019-06-16] MEDS ORDERED: CEFTRIAXONE/SWI 1gm 1 GM/10 ML SYR IV SCH (09:00)
[2019-06-16] MEDS: ISOSORBIDE MONO SR 30 MG TAB PO SCH (09:00)
[2019-06-16] MEDS: CLOPIDOGREL 75 MG TABLET PO SCH (09:00)
[2019-06-16] MEDS: MAGNESIUM OXIDE 400 MG TAB PO SCH ×2 (09:00→21:47)
[2019-06-16] MEDS: APIXABAN 5 MG TABLET PO SCH ×2 (09:00→21:44)
[2019-06-16] MEDS ORDERED: CEFTRIAXONE 1 GM/NS 50 ML 1 GM/50 ML BAG IV SCH (09:00)
[2019-06-16] MEDS ORDERED: ASPIRIN EC 81 MG TAB PO SCH (09:00)
[2019-06-16] MEDS: DULOXETINE 30 MG CAP PO SCH ×2 (09:00→21:44)
[2019-06-16] MEDS: CEFTRIAXONE/SWI 1gm 1 GM/10 ML SYR IV SCH ×2 (09:00→21:45)
[2019-06-16] MEDS ORDERED: CEFTRIAXONE/SWI 1gm 1 GM/10 ML SYR ONE (10:02)
[2019-06-16] MEDS ORDERED: FAMOTIDINE 20 MG TAB ONE (10:02)
[2019-06-16] MEDS ORDERED: MAGNESIUM OXIDE 400 MG TAB ONE (10:02)
[2019-06-16] MEDS ORDERED: CLOPIDOGREL 75 MG TABLET ONE (10:02)
--- NOTE | 2019-06-16 10:17 | EKG ---
Test Date: 2019-06-15 Test Time: 19:09:37 Hunting Sales Leader: SHERRI MEASUREMENT RESULTS: Intervals: Rate: 63 VA: 162 QRSD: 78 QT: 476 QTc: 487 Dragoon: P: 34 VA: 162 QRS: -36 T: 34 INTERPRETIVE STATEMENTS: Sinus rhythm with premature atrial complexes Left axis deviation Abnormal ECG Compared to ECG 09/21/2017 18:17:27 Atrial premature complex(es) now present Electronically Signed On 06-16-19 10:17:11 WOOD LATHER by Kam Colmenares
--- NOTE | 2019-06-16 11:14 | RAD REPORT ---
EXAM DESCRIPTION: RAD - Hip Right 2 View - 06/16/2019 11:00 am CLINICAL HISTORY: Right hip pain FINDINGS: No fracture or dislocation is seen. Mild to moderate osteoarthritis involves the right hip consisting joint space narrowing, osteophyte s and subchondral sclerosis. Bones are osteoporotic
--- NOTE | 2019-06-16 11:15 | RAD REPORT ---
EXAM DESCRIPTION: RAD - Hip Left 2 View - 06/16/2019 11:00 am CLINICAL HISTORY: Left hip pain FINDINGS: No fracture or dislocation is seen. Mild osteoarthritis involves the left hip. Bones are osteoporotic
--- NOTE | 2019-06-16 11:17 | RAD REPORT ---
EXAM DESCRIPTION: RAD - Knee Left 3 View - 06/16/2019 11:01 am CLINICAL HISTORY: Left knee pain FINDINGS: No fracture or dislocation is seen. Left knee arthroplasty. The prosthesis is in good position without evidence of loosening. Osteoporosis
--- NOTE | 2019-06-16 11:28 | RAD REPORT ---
EXAM DESCRIPTION: RAD - Chest Single View - 06/16/2019 11:00 am CLINICAL HISTORY: Chest pain COMPARISON: June 15 TECHNIQUE: AP portable chest image was obtained 1019 hours . FINDINGS: No focal mass or consolidation. Interstitial pattern is prominent but not substantially di fferent. The extent of chronic disease could mask early interstitial edema or infiltrate. Heart and v asculature are normal. No measurable pleural effusion and no pneumothorax. No acute bony abnormality seen. No acute aortic findings suspected. IMPRESSION: Prominent, chronic interstitial lung pattern potentially masking early edema or infiltra te. No focal mass or consolidation.
--- NOTE | 2019-06-16 11:31 | RAD REPORT ---
EXAM DESCRIPTION: RAD - Lumbar Spine 3 Views - 06/16/2019 11:00 am CLINICAL HISTORY: Osteoarthritis, back pain COMPARISON: None. FINDINGS: A three-view lumbar spine examination was performed. Patient has a prominent degenerative S-shaped scoliotic curvature. Right convex [place] is at the T12 level. Left convex [place] is at the L2-3 level. Anterior subluxation of L4 on L5 noted secondary to advanced facet degenerative change. There is a slight left lateral subluxation of L4 relative to L5. Minimal height loss noted along the left l ateral aspect of L1 due to the scoliotic curvature. There is minimal height loss along the right late ral L3 and L4 bodies due to the concavity of the scoliosis on the right side. No pathologic bone proc ess. Prominent disc space narrowing and degenerative endplate changes noted at T11-12, T12-L1 and L1- 2. Slightly less prominent degenerative change in the disc at L 2-3. No pathologic bone process. Adva nced facet degenerative change present throughout the lumbar spine. No pars defects identified. Arterial tree calcifications are present. IVC filter in place. IMPRESSION: Patient has very advanced advanced lumbar spine degenerative change and thoracolumbar sc oliosis as detailed. An acute lumbar process is not seen.
--- NOTE | 2019-06-16 11:32 | RAD REPORT ---
EXAM DESCRIPTION: RAD - Pelvis - 06/16/2019 11:03 am CLINICAL HISTORY: Osteoarthritis, back, pelvic and hip pain COMPARISON: April 2017 TECHNIQUE: AP imaging of the pelvis was obtained. FINDINGS: Advanced lumbar degenerative changes are separately detailed. SI joint degenerative change s minimal and not substantially different from 2017. No pelvic fracture or acute pelvic finding. Hip joints are separately detailed. IMPRESSION: No significant pelvic finding. Lumbar spine and hip joints are separately detailed.
--- NOTE | 2019-06-16 11:41 | RAD REPORT ---
EXAM DESCRIPTION: RAD - Knee Right 3 View - 06/16/2019 11:02 am CLINICAL HISTORY: Right knee pain FINDINGS: No fracture or dislocation is seen. Bones are osteoporotic. Right knee arthroplasty. There is no evidence of loosening of the prosthesis.
[2019-06-16] MEDS ORDERED: ATORVASTATIN 10 MG TAB PO SCH (21:00)
[2019-06-16 21:04] LABS: Magnesium 1.9 mg/dL (1.8-2.4); Potassium 3.6 mmol/L (3.5-5.1)
[2019-06-17] MEDS: ACETAMINOPHEN 325 MG TABLET PO PRN ×3 (00:37→21:45)
[2019-06-17] MEDS: NA CHLORIDE 0.9% 1,000 ML IV SCH ×2 (04:17→15:09)
[2019-06-17 05:13] LABS: Absolute Lymphocytes (CBC) 0.9 K/uL (0.7-4.9); Basophils % 0.8 % (0-1.3); Hematocrit 26.9 % (36.0-45.0); Lymphocytes % 9.3 % (15.3-44.8); MPV 7.5 fL (7.6-11.3); RBC Red Blood Cell Count 3.05 M/uL (3.86-4.86)
[2019-06-17 05:34] LABS: Magnesium 1.6 mg/dL (1.8-2.4); Potassium 3.2 mmol/L (3.5-5.1)
[2019-06-17] MEDS ORDERED: POTASSIUM CL SA 10 MEQ TAB PO ONE (05:50)
[2019-06-17] MEDS ORDERED: Magnesium Sulfate 2gm IVPB 2 G/50 ML BAG IV ONE (05:50)
[2019-06-17] MEDS ORDERED: MAGNESIUM SULFATE 1 gm IVPB 1 GM/100 ML BAG IV ONE (05:52)
--- NOTE | 2019-06-17 06:29 | HP ---
Date of Admission: 06/15/2019 Chief Complaint: Feeling weak and hurting. History Of Present Illness: This is an 84-year-old female patient who lives at home with her sister, has been having increasing problem with pain in her both legs. Describes as pain in muscles and char nts of the lower extremities including hips, knees, back, etc. Her condition has been deteriorating lately where the patient's family contacted me yesterday and informed me that they can no longer take care of her at home and something needs to be done. After talking to family, it was advised for the m to bring patient to the emergency room. She is having increasing difficulty getting up and moving around. She is having generalized weakness. After she was evaluated in the ER, she was admitted to the hospital. When I saw her this morning, she was still in emergency room. She was sleeping, arous able, and soon as I started talking to her, she got extremely upset and mad at me for no obvious reas on as I had just walked into the room and started to talk to her and later on she became cooperative to answer questions, and during physical exam time, she was cooperative as well. Allergies: TO GABAPENTIN AND LYRICA. Medications: List reviewed and according to office list, she is on amlodipine 5 mg daily in morning; Eliquis 5 mg p.o. 2 times a day; carvedilol 25 mg, takes 1 tablet by mouth 2 times a day; clopidogre l 75 mg p.o. daily; Senokot-S 1 tablet by mouth 2 times; doxazosin 8 mg, she takes 1 tablet at bedtim e; duloxetine 60 mg p.o. 2 times a day; ferrous sulfate 325 mg p.o. 2 times a day; Folbic 1 tablet by mouth p.o. daily; furosemide 40 mg, takes 1 tablet by mouth daily; hydralazine 10 mg tablet and she takes 2 tablets by mouth 2 times a day; isosorbide mononitrate 60 mg by mouth daily; magnesium oxide 400 mg, takes 1 tablet by mouth 2 times a day; metformin 500 mg 2 times a day; Myrbetriq 25 mg p.o. d aily; olmesartan 40 mg p.o. daily; MiraLAX 17 g powder mixed with 8-ounce water daily; pravastatin 20 mg p.o. daily; ranitidine 150 mg p.o. at bedtime; sildenafil 20 mg, she takes as prescribed by her p ulmonologist; Januvia 100 mg p.o. daily with breakfast; and VESIcare 10 mg p.o. daily. Allergies: TO ATORVASTATIN AND SIMVASTATIN, BOTH CAUSING MYALGIA. Review of Systems: Constitutional: As mentioned above. Musculoskeletal: As mentioned. Above all other systems reviewed and negative. Social History: Occasional use of alcohol. Prior history of smoking, not at present time. Family History: Father ; had prostate cancer, coronary artery disease, and congestive heart fail ure. Mother ; had coronary artery disease and congestive heart failure. Sister has anxiety, hyp ertension, and high cholesterol problem. Past Surgical History: In 2007, patient had IVC filter placed in [place] recently and she reports th at one of her physician in [place] told her, they wanted to take it out and then later on her physici ans in [place] decided not to take her IVC filter out. Past Surgical History: Also significant for cataract surgery and ankle surgery. 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 Hyperlipidemi a, paroxysmal atrial fibrillation, hypertension, pulmonary embolism, gastroesophageal reflux disease, diverticulosis, chronic kidney disease stage 3, overactive bladder. Physical Examination: VITAL SIGNS: Temperature 98.1, pulse 61, respiratory rate 16, blood pressure 90/45, oxygen saturatio n 93%. Height 5 feet 5 inches, weight 162 pounds. General: Awake, alert, oriented, not in distress. HEENT: Head atraumatic, normocephalic. Conjunctivae nonerythematous. Sclerae white. Mouth, no thr ush or edema noted. Ears/Nose, no mass, lesion, discharge noted. Neck: Supple. No JVD, lymph nodes, bruit, thyromegaly noted. Lungs: Bilateral good equal air entry. Clear to auscultation. No rhonchi. No rales. Heart: Normal heart sounds, no murmur or gallop. Abdomen: Soft, bowel sounds normal. No guarding, rigidity, tenderness, mass, hepatosplenomegaly, dis tention, or bruit noted. Extremities: No leg edema. No calf tenderness. Skin: Her feet examination shows evidence of poor personal hygiene. Lymphatics: No lymph node enlargement in neck, supraclavicular, infraclavicular region. Neuro: No focal neurological deficit. Chest: Unremarkable. External Genitalia: Deferred. Rectal: Deferred. Laboratory Data: Yesterday, white count 7.2, hemoglobin 10.9, platelets 418. This morning, white co unt 7.7, hemoglobin 8.7, platelets 341. Yesterday, sodium 142, potassium 3.7, chloride 107, bicarb 2 8, BUN 17, creatinine 0.91, glucose 110, magnesium 1.5. Liver function tests unremarkable. Troponin less than 0.02, lipase 44. This morning, sodium 143, potassium 3.2, chloride 108, bicarb 29, BUN 20 , creatinine 0.89, glucose . CAT scan of abdomen and pelvis done in emergency room shows d istended bladder, diverticulitis with diverticulosis, IVC filter present, and one of the limb of IVC filter protrudes 17 mm outside of the lumen. Hepatic and splenic granuloma present. Ventral hernia containing fat present. Chest x-ray, no acute cardiopulmonary changes. Impression: 1.Urinary tract infection. 2.Hypokalemia. 3.Hypomagnesemia. 4.Anemia. 5.Secondary pulmonary hypertension. 6.Paroxysmal atrial fibrillation. 7.Hypertension. 8.Hyperlipidemia. 9.Type 2 diabetes mellitus. 10.Osteoarthritis, multiple sites. 11.Gastroesophageal reflux disease. 12.Diverticulosis. 13.Status post IVC filter placement. Plan: We will admit the patient to hospital for further evaluation and management of this problem. Patient is appropriate for inpatient and is expected to spend 2 midnights in hospital. We will nica nue her home medications per order. IV fluid will be given. IV antibiotics will be given. Follow u p on culture results and then decide about culture specific antibiotic. We will consult Physical The rapy. I have ordered x-ray of lumbar spine, bilateral hip and knee. Social service consultation was requested to assist the patient with [facility] facility placement. Continue Tan and Meli santa see her tomorrow for followup. BEST/MODL Voice ID: [id number]
[2019-06-17] MEDS: CEFTRIAXONE/SWI 1gm 1 GM/10 ML SYR IV SCH ×2 (08:13→21:46)
[2019-06-17] MEDS: FAMOTIDINE 20 MG/2 ML VIAL IV SCH (08:14)
[2019-06-17] MEDS: MAGNESIUM OXIDE 400 MG TAB PO SCH ×2 (10:42→21:46)
[2019-06-17] MEDS: DULOXETINE 30 MG CAP PO SCH (10:42)
[2019-06-17] MEDS: CLOPIDOGREL 75 MG TABLET PO SCH (10:42)
[2019-06-17] MEDS: ISOSORBIDE MONO SR 30 MG TAB PO SCH (10:42)
[2019-06-17] MEDS: APIXABAN 5 MG TABLET PO SCH (10:43)
--- NOTE | 2019-06-17 19:36 | PN ---
Date of Progress Note: 06/17/2019 Subjective: Patient was seen this morning for followup. No new complaints or problems reported by h er this morning. Her sister was present with her in room. Objective: Vital Signs: Reviewed. HEENT: Unremarkable. Lungs: Clear to auscultation. Heart: Sounds normal. Abdomen: Soft. Bowel sounds normal. No guarding, rigidity, tenderness, distention. Extremities: No leg edema. Laboratory Data: White count 9.5, hemoglobin 9.2, platelets 326. Sodium 141, potassium 3.2, chlorid e 106, bicarb 29, BUN 28, creatinine 1.06, glucose 121, magnesium 1.6. Impression: 1.Urinary tract infection. 2.Hypokalemia. 3.Hypomagnesemia. 4.Anemia. 5.Generalized weakness. 6.Osteoarthritis, multiple sites. 7.Lumbar spinal stenosis. Plan: We will go ahead and continue current antibiotic and IV fluid. Remove Nicolas catheter today. She had urinary retention along with . We will go ahead and have Physical Therapy work wit h her. In addition has tendency to lean more and more forward and she has done that over period of t dominique and is the time she has done more or so. She is also doing maintenance at home from time to time . With her overall declining health, she will benefit from [facility] facility placement. [facility] Service will assist her. I did talk to her in detail about it again this morning and a lso gave a copy of CAT scan results to her family member and patient was made aware of that fact that I would like for her to follow up with her middle school combination teacher and/or purchasing manager/sales for abnormality noted o n the CAT scan, which is one of the leg of the IVC filter was protruding outside the blood vessel, so that it needed to be addressed to see if there is anything that can be or needs to be done out. Rick guthrie will set up appointment for her to visit her specialist in about 2 weeks or so. X-ray results re viewed with her. She has advanced degenerative joint disease of her lumbar spine and on basis of cli nical symptoms, the way she is describing very likely she has lumbar spinal stenosis as well. She wa s advised to follow up with some back specialist upon discharge from the hospital and she will do so in [facility]. The patient was advised to work with Social Service today to start to make arrangem ents for [facility] facility placement. Possible discharge day after tomorrow. BEST/MODL Voice ID: [id number] Report ID: [id number]
[2019-06-18] MEDS: NA CHLORIDE 0.9% 1,000 ML IV SCH ×5 (02:05→21:51)
[2019-06-18] MEDS ORDERED: HOME MED 1 EA UNK (Mirabegron [Myrbetriq] 50 MG) PO SCH (09:00)
[2019-06-18] MEDS: MAGNESIUM OXIDE 400 MG TAB PO SCH (09:30)
[2019-06-18] MEDS: CEFTRIAXONE/SWI 1gm 1 GM/10 ML SYR IV SCH ×2 (09:31→21:52)
[2019-06-18] MEDS: carvediloL 25 MG TAB PO SCH ×2 (11:56→21:53)
[2019-06-18] MEDS: APIXABAN 5 MG TABLET PO SCH ×2 (11:56→21:52)
[2019-06-18] MEDS: VALSARTAN 160 MG TAB PO SCH (11:56)
[2019-06-18] MEDS: FUROSEMIDE 40 MG TABLET PO SCH (11:57)
[2019-06-18] MEDS: SITAGLIPTIN PHOS 100 MG TAB PO SCH (11:57)
[2019-06-18] MEDS: ISOSORBIDE MONO SR 60 MG TAB PO SCH (11:57)
[2019-06-18] MEDS: CLOPIDOGREL 75 MG TABLET PO SCH (11:57)
[2019-06-18] MEDS: DULOXETINE 30 MG CAP PO SCH ×2 (11:57→21:52)
[2019-06-18] MEDS: SOLIFENACIN SUCCIN 5 MG TAB PO SCH (11:58)
--- NOTE | 2019-06-18 13:52 | PN ---
Date of Progress Note: 06/18/2019 Subjective: Patient was seen this morning for followup. There was no family member with her at [facility]. Yesterday, patient had her medications in a pillbox and I had asked her to let her know to get the original medication bottles from home as she wanted to use her own medications while in the [facility], so as per hospital policy, we can get those medications verified by our pharmacist and then we c an continue to use their home supply, so yesterday, nurse explained it to her about those things and her home medications were ordered to be continued using her home medication supply. This morning, stefani godoy tells me that the patient refuses to send her medication to the pharmacy to be verified by pharma cist as she is afraid that her medications will get lost. I talked to her about it and she is umeri lisha refusing her medications to be sent to pharmacy, but she is now agreeable to at least have her m edications given from our hospital pharmacy, so that way she will not use her home supply. I have ta lked to pharmacist and I explained it to him to make sure to continue all her medications the way it is ordered using a supply from our pharmacy and her morning dose needs to be started this morning. B esides her back pain, she does not have any other complaints today. Objective: Vital Signs: Reviewed. HEENT: Examination unremarkable. Lungs: Clear to auscultation. Heart: Sounds normal. Abdomen: Soft. Bowel sounds normal. No guarding, rigidity, tenderness, or distention. Extremities: No leg edema. Laboratory Data: Last potassium yesterday was 3.9. Last magnesium today 1.9. Fingerstick blood sug ar readings reviewed. Impression: 1.Urinary tract infection. 2.Hypertension. 3.Diabetes mellitus. 4.Osteoarthritis, multiple sites. 5.Lumbar spinal stenosis. Plan: We will go ahead and continue current medications. Home medications will be continued. Eboni mei current antibiotics. Physical Therapy to work with the patient yesterday. Patient states Physic al Therapy came, but at that time, she was not ready for therapy, so she did not get any physical the rapy yesterday. We are awaiting for social service to assist her with placement in a alf facility of her choice and so has that arrangements gets completed, we [facility] that can happen as early as tomorrow. BEST/MODL Voice ID: [id number] Report ID: [id number]
[2019-06-18] MEDS: METFORMIN HCL 500 MG TAB PO SCH (17:07)
[2019-06-18] MEDS: ACETAMINOPHEN 325 MG TABLET PO PRN ×2 (17:10→23:01)
[2019-06-18] MEDS: ATORVASTATIN 10 MG TAB PO SCH (21:52)
[2019-06-18] MEDS: DOXAZOSIN 4 MG TAB PO SCH (21:52)
[2019-06-19] MEDS ORDERED: DOXAZOSIN 2 MG TAB ONE (08:41)
[2019-06-19] MEDS: DOXAZOSIN 4 MG TAB PO SCH ×2 (09:00→21:40)
[2019-06-19] MEDS: VALSARTAN 160 MG TAB PO SCH (09:00)
[2019-06-19] MEDS ORDERED: MORPHINE 2 MG/ML SYR IV PRN (09:15)
[2019-06-19] MEDS: DULOXETINE 30 MG CAP PO SCH ×2 (11:16→21:40)
[2019-06-19] MEDS: CEFTRIAXONE/SWI 1gm 1 GM/10 ML SYR IV SCH ×2 (11:16→21:40)
[2019-06-19] MEDS: MULTIVIT W/ MINERAL TAB PO SCH (11:17)
[2019-06-19] MEDS: MAGNESIUM OXIDE 400 MG TAB PO SCH (11:17)
[2019-06-19] MEDS: carvediloL 25 MG TAB PO SCH ×2 (11:17→21:40)
[2019-06-19] MEDS: SITAGLIPTIN PHOS 100 MG TAB PO SCH (11:17)
[2019-06-19] MEDS: CLOPIDOGREL 75 MG TABLET PO SCH (11:17)
[2019-06-19] MEDS: FUROSEMIDE 40 MG TABLET PO SCH (11:17)
[2019-06-19] MEDS: APIXABAN 5 MG TABLET PO SCH ×2 (11:17→21:40)
[2019-06-19] MEDS: FOLBIC 1 TAB PO SCH (11:18)
[2019-06-19] MEDS: VITAMIN E 400 IU CAP PO SCH (11:18)
[2019-06-19] MEDS: SOLIFENACIN SUCCIN 5 MG TAB PO SCH (11:18)
[2019-06-19] MEDS: ISOSORBIDE MONO SR 60 MG TAB PO SCH (11:18)
[2019-06-19] MEDS: NA CHLORIDE 0.9% 1,000 ML IV SCH ×3 (11:22→21:39)
[2019-06-19] MEDS: HYDRALAZINE HCL 10 MG TABLET PO SCH ×2 (11:22→21:40)
[2019-06-19] MEDS: METFORMIN HCL 500 MG TAB PO SCH ×2 (11:22→17:29)
[2019-06-19] MEDS: ATORVASTATIN 10 MG TAB PO SCH (21:40)
--- NOTE | 2019-06-19 21:46 | PN ---
Date of Progress Note: 06/19/2019 Subjective: Patient was seen this morning for followup. She was lying in bed. Denied any complaint s except her back pain, which is unchanged. Objective: Vital Signs: Reviewed. HEENT: Unremarkable. Lungs: Clear to auscultation. Heart: Heart sounds normal. Abdomen: Soft, bowel sounds normal. No guarding, rigidity, tenderness, distention. Extremities: No leg edema. Laboratory Data: There is no blood work from this morning. Impression: 1.Urinary tract infection. 2.Lumbar spinal stenosis. 3.Osteoarthritis, multiple sites. 4.Hypertension. 5.Type 2 diabetes mellitus. Plan: Continue current medications, continue current antibiotics. Physical therapy to continue to w ork with the patient. Social Service is working with the patient and insurance company to try to jacob ce her in a long-term facility. Once that arrangements gets completed, we will be able to disc harge her. BEST/MODL Voice ID: [id number] Report ID: [id number]
[2019-06-19] MEDS: ACETAMINOPHEN 325 MG TABLET PO PRN (22:05)
[2019-06-20] MEDS: NA CHLORIDE 0.9% 1,000 ML IV SCH ×2 (01:15→11:15)
[2019-06-20] MEDS ORDERED: POTASSIUM CL SA 10 MEQ TAB PO ONE (09:00)
[2019-06-20] MEDS: DULOXETINE 30 MG CAP PO SCH ×2 (10:21→21:08)
[2019-06-20] MEDS: HYDRALAZINE HCL 10 MG TABLET PO SCH ×2 (10:21→21:08)
[2019-06-20] MEDS: DOXAZOSIN 4 MG TAB PO SCH ×2 (10:21→21:08)
[2019-06-20] MEDS: carvediloL 25 MG TAB PO SCH ×2 (10:21→21:09)
[2019-06-20] MEDS: CEFTRIAXONE/SWI 1gm 1 GM/10 ML SYR IV SCH ×2 (10:21→21:08)
[2019-06-20] MEDS: MULTIVIT W/ MINERAL TAB PO SCH (10:21)
[2019-06-20] MEDS: VITAMIN E 400 IU CAP PO SCH (10:21)
[2019-06-20] MEDS: SOLIFENACIN SUCCIN 5 MG TAB PO SCH (10:21)
[2019-06-20] MEDS: APIXABAN 5 MG TABLET PO SCH ×2 (10:21→21:09)
[2019-06-20] MEDS: ISOSORBIDE MONO SR 60 MG TAB PO SCH (10:22)
[2019-06-20] MEDS: FOLBIC 1 TAB PO SCH (10:22)
[2019-06-20] MEDS: FE SULF/FA/VIT B COMP & C TAB PO SCH (10:22)
[2019-06-20] MEDS: VALSARTAN 160 MG TAB PO SCH (10:22)
[2019-06-20] MEDS: SITAGLIPTIN PHOS 100 MG TAB PO SCH (10:22)
[2019-06-20] MEDS: FUROSEMIDE 40 MG TABLET PO SCH (10:22)
[2019-06-20] MEDS: CLOPIDOGREL 75 MG TABLET PO SCH (10:22)
[2019-06-20] MEDS: METFORMIN HCL 500 MG TAB PO SCH ×2 (10:23→17:00)
[2019-06-20] MEDS: MAGNESIUM OXIDE 400 MG TAB PO SCH (10:23)
[2019-06-20] MEDS: ACETAMINOPHEN 325 MG TABLET PO PRN ×2 (10:29→21:16)
--- NOTE | 2019-06-20 16:03 | PN ---
Date of Progress Note: 06/20/2019 Subjective: Patient was seen this morning for followup. No new complaints or problems reported exce pt she reported that she did not ambulate yesterday and says that physical therapy came back and at t hat time she requested therapy to come back later on, and she is not sure if they came back and if sh irene was sleeping or not, so she has not ambulated yesterday reason as she reports. Objective: Vital Signs: Reviewed. HEENT: Unremarkable. Lungs: Clear to auscultation. Heart: Sounds normal. Abdomen: Soft. Bowel sounds normal. No guarding, rigidity, tenderness. No distention. Extremities: No leg edema. Impression: 1.Urinary tract infection. 2.Generalized weakness. 3.Osteoarthritis, multiple sites. 4.Lumbar spinal stenosis. 5.Anemia. 6.Diabetes mellitus. 7.Hypertension. Plan: We will continue home medications, antibiotics. Physical therapy to try to work with the antonella ent. Social Science Professor trying to get approval from insurance company and arrangements for skilled nurs ing facility placement. Patient is medically stable for discharge soon as all of this arrangement jimmy ts completed. BEST/MODL Voice ID: [id number] Report ID: [id number]
[2019-06-20] MEDS ORDERED: MAGNESIUM HYDROXIDE 8% 30 ML PO ONE (17:00)
[2019-06-20] MEDS: ATORVASTATIN 10 MG TAB PO SCH (21:09)
[2019-06-21 06:58] LABS: Magnesium 1.8 mg/dL (1.8-2.4)
[2019-06-21 07:01] LABS: Absolute Lymphocytes (CBC) 0.5 K/uL (0.7-4.9); Basophils % 0.6 % (0-1.3); Hematocrit 24.1 % (36.0-45.0); Lymphocytes % 4.5 % (15.3-44.8); MPV 8.2 fL (7.6-11.3); RBC Red Blood Cell Count 2.69 M/uL (3.86-4.86)
[2019-06-21] MEDS ORDERED: MAGNESIUM SULFATE 1 gm IVPB 1 GM/100 ML BAG IV ONE (07:08)
[2019-06-21] MEDS: SOLIFENACIN SUCCIN 5 MG TAB PO SCH (08:11)
[2019-06-21] MEDS: MAGNESIUM OXIDE 400 MG TAB PO SCH (08:12)
[2019-06-21] MEDS: ASCORBIC ACID 500 MG TABLET PO SCH (08:12)
[2019-06-21] MEDS: MULTIVIT W/ MINERAL TAB PO SCH (08:12)
[2019-06-21] MEDS: FE SULF/FA/VIT B COMP & C TAB PO SCH (08:12)
[2019-06-21] MEDS: FOLBIC 1 TAB PO SCH (08:13)
[2019-06-21] MEDS: VITAMIN E 400 IU CAP PO SCH (08:13)
[2019-06-21] MEDS: ISOSORBIDE MONO SR 60 MG TAB PO SCH (08:13)
[2019-06-21] MEDS: CLOPIDOGREL 75 MG TABLET PO SCH (08:13)
[2019-06-21] MEDS: DULOXETINE 30 MG CAP PO SCH ×2 (08:13→21:27)
[2019-06-21] MEDS: SITAGLIPTIN PHOS 100 MG TAB PO SCH (08:13)
[2019-06-21] MEDS: METFORMIN HCL 500 MG TAB PO SCH ×2 (08:13→17:43)
[2019-06-21] MEDS: CEFTRIAXONE/SWI 1gm 1 GM/10 ML SYR IV SCH ×2 (08:15→21:27)
[2019-06-21] MEDS: APIXABAN 5 MG TABLET PO SCH ×2 (08:15→21:28)
[2019-06-21] MEDS: ACETAMINOPHEN 325 MG TABLET PO PRN (08:34)
[2019-06-21] MEDS: DOXAZOSIN 4 MG TAB PO SCH ×2 (08:36→21:28)
[2019-06-21] MEDS: VALSARTAN 160 MG TAB PO SCH (08:37)
[2019-06-21] MEDS: HYDRALAZINE HCL 10 MG TABLET PO SCH (08:37)
[2019-06-21] MEDS: carvediloL 25 MG TAB PO SCH ×2 (08:37→21:26)
[2019-06-21] MEDS: FUROSEMIDE 40 MG TABLET PO SCH (08:37)
[2019-06-21] MEDS ORDERED: MAGNESIUM HYDROXIDE 8% 30 ML PO ONE (11:00)
[2019-06-21 13:00] LABS: Absolute Lymphocytes (CBC) 0.4 K/uL (0.7-4.9); Basophils % 0.3 % (0-1.3); Hematocrit 23.8 % (36.0-45.0); MPV 7.8 fL (7.6-11.3); RBC Red Blood Cell Count 2.72 M/uL (3.86-4.86)
[2019-06-21 14:25] LABS: Urine Appearance CLOUDY; Urine Bilirubin NEGATIVE (NEG); Urine Blood NEGATIVE (NEG); Urine Color YELLOW; Urine Glucose NEGATIVE (NEG); Urine Protein 1+ (NEG); Urine Specific Gravity 1.015 (1.005-1.030); Urine Urobilinogen 0.2 mg/dL (0.2-1.0)
[2019-06-21 15:00] LABS: Urine Bacteria 20-50 /HPF (<20); Urine RBC NONE SEEN /HPF (NONE SEEN)
[2019-06-21 15:01] LABS: Urine Culture Reflex Order NOT NEEDED
--- NOTE | 2019-06-21 15:04 | PN ---
Date of Progress Note: 06/21/2019 Subjective: Patient was seen this morning for followup. When I walked in room, she was sleeping, ea sily arousable, not in any distress, does not report any new complaints, but continues to report that she is not feeling good. She is having significant back pain as she reports. She is more comfortab le in the left lateral position and that is how she sleeps at home as well and in the hospital, and I did encourage her to keep changing position to avoid any decubitus ulcer. She has not had a bowel m ovement in last few days and yesterday, milk of magnesia was ordered, but she refused it when nurse b rought it because she did not want to take it at that time. She did not ambulate yesterday, did not participate with physical therapy, and this is third day in a row, and she told me that yesterday whe n physical therapy came, she did not feel good, was feeling tired and that is why she did participate . So, every day for 1 or other reason she has not participated and worked with physical therapy. Objective: Vital Signs: Reviewed. HEENT: Unremarkable. Lungs: Clear to auscultation. Heart: Sounds normal. Abdomen: Soft. Bowel sounds normal. No guarding, rigidity, tenderness, distention. Has large abdo michael wall hernia, which is unchanged as patient reports and she is asymptomatic from that. Extremities: No leg edema. Skin: There is no evidence of any decubitus ulcer or any skin breakdown or any rash on her buttocks or sacral coccygeal region, and she was examined in presence of nurse. Laboratory Data: White count 10.7, hemoglobin 7.9, platelets 271. Sodium 139, potassium 4, chloride 108, bicarb 25, BUN 25, creatinine 0.74, glucose 133, magnesium 1.8. Impression: 1.Generalized weakness. 2.Debility. 3.Osteoarthritis, multiple sites. 4.Lumbar spinal stenosis. 5.Abdominal wall hernia. 6.Anemia. 7.Chronic anticoagulation therapy. 8.Lumbar spinal stenosis. 9.Hematuria. 10.Constipation. Plan: I talked to patient. She is willing to take her medication today for constipation and she is willing to take it, but she told the nurse that not at that particular time because she is not ready to take that medicine at that time. We will see if she participates and works with physical therapy or not today. We will continue current antibiotic. I have ordered urinalysis, urine culture, and if we are not able to collect a clean-catch specimen, then we will do straight cath for collection of u rine specimen. Stool occult blood was ordered. I will repeat another CBC this afternoon and then mikala ke a decision of blood transfusion and the patient was made aware that she may need blood transfusion . She denies any blood in stool. Yesterday, nursing staff reported that there was some blood stains in the diaper with urination but she does not report any blood in urine or stool. I will see her to joe for followup. BEST/MODL Voice ID: [id number] Report ID: [id number]
[2019-06-21] MEDS: HYDRALAZINE HCL 25 MG TABLET PO SCH (21:28)
[2019-06-21] MEDS: ATORVASTATIN 10 MG TAB PO SCH (21:28)
[2019-06-22] MEDS: ACETAMINOPHEN 325 MG TABLET PO PRN (00:28)
[2019-06-22 06:22] LABS: Magnesium 1.9 mg/dL (1.8-2.4)
[2019-06-22 06:33] LABS: Absolute Lymphocytes (CBC) 0.5 K/uL (0.7-4.9); Basophils % 0.7 % (0-1.3); Hematocrit 23.9 % (36.0-45.0); Lymphocytes % 5.3 % (15.3-44.8)
[2019-06-22] MEDS ORDERED: DOXAZOSIN 2 MG TAB ONE (07:29)
[2019-06-22] MEDS: METFORMIN HCL 500 MG TAB PO SCH ×2 (08:00→17:43)
[2019-06-22] MEDS: APIXABAN 5 MG TABLET PO SCH ×2 (09:21→21:22)
[2019-06-22] MEDS: MAGNESIUM OXIDE 400 MG TAB PO SCH (09:21)
[2019-06-22] MEDS: VALSARTAN 160 MG TAB PO SCH (09:21)
[2019-06-22] MEDS: CLOPIDOGREL 75 MG TABLET PO SCH (09:22)
[2019-06-22] MEDS: carvediloL 25 MG TAB PO SCH ×2 (09:22→21:22)
[2019-06-22] MEDS: HYDRALAZINE HCL 25 MG TABLET PO SCH ×2 (09:22→21:22)
[2019-06-22] MEDS: SOLIFENACIN SUCCIN 5 MG TAB PO SCH (09:22)
[2019-06-22] MEDS: MULTIVIT W/ MINERAL TAB PO SCH (09:22)
[2019-06-22] MEDS: FUROSEMIDE 40 MG TABLET PO SCH (09:23)
[2019-06-22] MEDS: SITAGLIPTIN PHOS 100 MG TAB PO SCH (09:24)
[2019-06-22] MEDS: DULOXETINE 30 MG CAP PO SCH ×2 (09:24→21:21)
[2019-06-22] MEDS: ASCORBIC ACID 500 MG TABLET PO SCH (09:24)
[2019-06-22] MEDS: VITAMIN E 400 IU CAP PO SCH (09:25)
[2019-06-22] MEDS: FOLBIC 1 TAB PO SCH (09:25)
[2019-06-22] MEDS: ISOSORBIDE MONO SR 60 MG TAB PO SCH (09:25)
[2019-06-22] MEDS: FE SULF/FA/VIT B COMP & C TAB PO SCH (09:36)
[2019-06-22] MEDS: CEFTRIAXONE/SWI 1gm 1 GM/10 ML SYR IV SCH ×2 (09:36→21:22)
[2019-06-22] MEDS: DOXAZOSIN 4 MG TAB PO SCH ×2 (09:36→21:21)
[2019-06-22] MEDS ORDERED: BISACODYL 10 MG RECTAL SUPP PR ONE (12:00)
[2019-06-22] MEDS: SOD FERRIC GLUC COMPLX/SUCROSE 250 MG in NA CHLORIDE 0.9% 250 ML IV SCH (13:40)
--- NOTE | 2019-06-22 16:46 | PN ---
Date of Progress Note: 06/22/2019 Subjective: Patient was seen this morning for followup. She was sleeping, easily arousable. Denied any complaints except her ongoing back pain. She is not sure if she participated with any physical therapy yesterday as she does not remember if therapist came by yesterday or not. She reports that s he did take milk of magnesia as ordered yesterday, but did not have a bowel movement. Denies any abd ominal pain, nausea, vomiting. Objective: Vital Signs: Reviewed. HEENT: Unremarkable. Lungs: Clear to auscultation. Heart: Sounds normal. Abdomen: Soft. Bowel sounds normal. No guarding, rigidity, tenderness, or distention. Extremities: No leg edema. Laboratory Data: White count 9.9, hemoglobin 8, platelets 325. Sodium 139, potassium 4, chloride 10 6, bicarb 26, BUN 23, creatinine 0.66, glucose 141, magnesium 1.9. Impression: 1.Constipation. 2.Abdominal wall hernia. 3.Hypertension. 4.Diabetes. 5.Lumbar spinal stenosis. 6.Anemia. Plan: At this point, there is no need for blood transfusion. We will go ahead and start her on IV i miller therapy starting today. Dulcolax rectal suppository will be ordered x1 dose today and details we re discussed with the patient. She is willing to try this therapy. Continue other current medical m anagement. Yesterday, we did increase dose of her hydralazine and we will monitor her blood pressure if necessary, consider to increase those again. We will see her tomorrow. BEST/MODL Voice ID: [id number] Report ID: [id number]
[2019-06-22] MEDS: ATORVASTATIN 10 MG TAB PO SCH (21:21)
[2019-06-23] MEDS ORDERED: DOXAZOSIN 2 MG TAB ONE (07:23)
[2019-06-23] MEDS: SOD FERRIC GLUC COMPLX/SUCROSE 250 MG in NA CHLORIDE 0.9% 250 ML IV SCH (08:00)
[2019-06-23] MEDS: DULOXETINE 30 MG CAP PO SCH ×2 (08:21→21:35)
[2019-06-23] MEDS: VALSARTAN 160 MG TAB PO SCH (08:24)
[2019-06-23] MEDS: SITAGLIPTIN PHOS 100 MG TAB PO SCH (08:24)
[2019-06-23] MEDS: MAGNESIUM OXIDE 400 MG TAB PO SCH (08:24)
[2019-06-23] MEDS: APIXABAN 5 MG TABLET PO SCH ×2 (08:25→21:35)
[2019-06-23] MEDS: SOLIFENACIN SUCCIN 5 MG TAB PO SCH (08:25)
[2019-06-23] MEDS: FUROSEMIDE 40 MG TABLET PO SCH (08:25)
[2019-06-23] MEDS: carvediloL 25 MG TAB PO SCH ×2 (08:26→21:34)
[2019-06-23] MEDS: HYDRALAZINE HCL 25 MG TABLET PO SCH ×2 (08:26→21:35)
[2019-06-23] MEDS: METFORMIN HCL 500 MG TAB PO SCH ×2 (08:26→17:20)
[2019-06-23] MEDS: ISOSORBIDE MONO SR 60 MG TAB PO SCH (08:27)
[2019-06-23] MEDS: VITAMIN E 400 IU CAP PO SCH (08:27)
[2019-06-23] MEDS: FOLBIC 1 TAB PO SCH (08:27)
[2019-06-23] MEDS: ASCORBIC ACID 500 MG TABLET PO SCH (08:27)
[2019-06-23] MEDS: MULTIVIT W/ MINERAL TAB PO SCH (09:10)
[2019-06-23] MEDS: ACETAMINOPHEN 325 MG TABLET PO PRN ×2 (09:11→18:59)
[2019-06-23] MEDS: CLOPIDOGREL 75 MG TABLET PO SCH (09:11)
[2019-06-23] MEDS: DOXAZOSIN 4 MG TAB PO SCH ×2 (09:11→21:35)
[2019-06-23] MEDS: FE SULF/FA/VIT B COMP & C TAB PO SCH (09:17)
[2019-06-23] MEDS ORDERED: FLEET ENEMA ADULT PR ONE (09:43)
--- NOTE | 2019-06-23 19:21 | RAD REPORT ---
EXAM DESCRIPTION: RAD - Abdomen 1 View (KUB) - 06/23/2019 7:05 pm CLINICAL HISTORY: Constipation FINDINGS: The bowel gas pattern is unremarkable. No significant abnormal calcification is displayed
[2019-06-23] MEDS: POLYETHYL GLY 3350 17 GM/DOSE PO SCH ×2 (21:00→21:36)
[2019-06-23] MEDS: ATORVASTATIN 10 MG TAB PO SCH (21:35)
--- NOTE | 2019-06-23 23:30 | PN ---
Date of Progress Note: 06/23/2019 Subjective: The patient was seen this morning for followup. She was lying in bed, sleeping, easily arousable. No new complaints or problems reported. She still has not had a bowel movement, so from last few days she has not had any bowel movement. Yesterday, she was given Dulcolax rectal supposito ry and she did get that, but did not have any response. So, this morning when I saw her, I talked to her about using enema and after I ordered enema, nurse notified and informed me that she refused adarsh ma. Physical Examination: HEENT: Unremarkable. Lungs: Clear to auscultation. Heart: Sounds normal. Abdomen: Soft. Bowel sounds normal. No guarding, rigidity, tenderness, distention. Extremities: No leg edema. Impression: 1.Constipation. 2.Urinary tract infection, resolved. 3.Lumbar spinal stenosis. 4.Osteoarthritis, multiple sites. 5.Hypertension. 6.Diabetes mellitus. 7.Generalized weakness. 8.Debility. Plan: Patient is not compliant with therapy or treatment. Sometimes she refuses medication when the nurses brings it to her. For example, she refused milk of magnesia to take it and next day she took it. She has been refusing physical therapy almost on a daily basis, so she has not ambulated at all since she has been in hospital because every time therapy comes to try to work with her, it is not c onvenient for one or other reason and she refuses to do any physical therapy at that particular time and I even informed her that if she does not participate with the physical therapy, then there is a p ossibility that insurance company will not approve any care home facility benefit for her. Thi s morning, she told me that she did not get any IV iron, which was ordered yesterday by me and then nilo brown I talked to the charge nurse, she verified and informed me that she did receive her IV iron as pe r order yesterday. At this point what I am afraid of that this patient is really not compliant with any recommendation that we have for her. Today, I ordered a Fleet enema and she refused it, so I kristie becerra asked the charge nurse to go and talk to her and try to convince her and I am not sure whether she agreed or not after that. I have ordered abdominal x-ray and MiraLax. I have called her family this evening, talked to her sister and olpzoph-ow-frf on the phone and I explained them that I feel very helpless, trying to help her because she is refusing treatment and not participating with the therapy and patient's sister feels like that she just does not want to leave anymore. I informed family coral t now there is no medical reason for her to be in the hospital anymore. She does not require any acu te medical care and we will have to consider discharging her from the hospital, and considering she c annot return back home with her family. She will have to go to nursing facility. Tomorrow morning, I will talk to her about that and plan for discharge. BEST/MODL Voice ID: [id number] Report ID: [id number]
[2019-06-24] MEDS: ACETAMINOPHEN 325 MG TABLET PO PRN ×2 (01:04→20:58)
[2019-06-24] MEDS: APIXABAN 5 MG TABLET PO SCH ×2 (08:21→20:57)
[2019-06-24] MEDS: SOLIFENACIN SUCCIN 5 MG TAB PO SCH (08:21)
[2019-06-24] MEDS: SITAGLIPTIN PHOS 100 MG TAB PO SCH (08:22)
[2019-06-24] MEDS: DULOXETINE 30 MG CAP PO SCH ×2 (08:22→20:57)
[2019-06-24] MEDS: FUROSEMIDE 40 MG TABLET PO SCH (08:22)
[2019-06-24] MEDS: VALSARTAN 160 MG TAB PO SCH (08:22)
[2019-06-24] MEDS: ASCORBIC ACID 500 MG TABLET PO SCH (08:22)
[2019-06-24] MEDS: FE SULF/FA/VIT B COMP & C TAB PO SCH (08:22)
[2019-06-24] MEDS: HYDRALAZINE HCL 25 MG TABLET PO SCH ×2 (08:23→20:58)
[2019-06-24] MEDS: METFORMIN HCL 500 MG TAB PO SCH ×2 (08:23→17:54)
[2019-06-24] MEDS: MAGNESIUM OXIDE 400 MG TAB PO SCH (08:23)
[2019-06-24] MEDS: DOXAZOSIN 4 MG TAB PO SCH ×2 (08:23→20:57)
[2019-06-24] MEDS: CLOPIDOGREL 75 MG TABLET PO SCH (08:24)
[2019-06-24] MEDS: FOLBIC 1 TAB PO SCH (08:24)
[2019-06-24] MEDS: POLYETHYL GLY 3350 17 GM/DOSE PO SCH ×2 (08:24→21:00)
[2019-06-24] MEDS: VITAMIN E 400 IU CAP PO SCH (08:24)
[2019-06-24] MEDS: ISOSORBIDE MONO SR 60 MG TAB PO SCH (08:24)
[2019-06-24] MEDS: MULTIVIT W/ MINERAL TAB PO SCH (08:24)
[2019-06-24] MEDS: carvediloL 25 MG TAB PO SCH ×2 (08:28→20:58)
[2019-06-24] MEDS: SOD FERRIC GLUC COMPLX/SUCROSE 250 MG in NA CHLORIDE 0.9% 250 ML IV SCH (09:00)
[2019-06-24] MEDS: ATORVASTATIN 10 MG TAB PO SCH (20:58)
--- NOTE | 2019-06-25 00:01 | PN ---
Date of Progress Note: 06/24/2019 Subjective: Patient was seen this morning for followup. Her sister and lnnsldg-yx-ubl were present with her in the room and I saw her this morning. Vital signs reviewed. She denies any new specific complaints. Objective: HEENT: Unremarkable. Lungs: Clear to auscultation. Heart: Sounds normal. Abdomen: Soft. Bowel sounds normal. No guarding, rigidity, tenderness. Patient did have a bowel m ovement early this morning. Extremities: No leg edema. Impression: 1.Constipation, resolved. 2.Spinal stenosis. 3.Osteoarthritis, multiple sites. 4.Generalized weakness. 5.Debility. Plan: Patient is not compliant as we have seen during this hospitalization. She has refused physica l therapy participation every time physical therapy come to her room and offered her to do therapy wi th her. She has not gotten out of bed during this hospital stay and I talked to her about that. Inf ormed her that with her noncompliance, insurance company may not approve shelter facility [facility] and after talking to her that she may need to go to retirement of choice is a private pay and considering the skilled benefit may not be approved. She understands that and she wants to go to [facility] as that is her facility of her choice. Family is not able to take her back home, w chanda I obviously understand. So, Social Service was requested to assist the patient with this nursin g home placement and discharge order was written, but as I understand, [facility] and hopefully she might be able to get discharged tomorrow later this afternoon or early evening t dominique. Nurse contacted and informed me that the patient had choking episode because she was eating whi le lying flat in supine position. She was not cooperative with the nursing staff to sit down and eat . I have instructed nurse that she should instruct the patient that she must sit upright at 90 degre e angle at mealtime and I was communicated with her tomorrow morning. Her overall prognosis is poor because of her noncompliance. BEST/MODL Voice ID: [id number] Report ID: [id number]
[2019-06-25] MEDS: METFORMIN HCL 500 MG TAB PO SCH (08:00)
[2019-06-25] MEDS: CLOPIDOGREL 75 MG TABLET PO SCH (09:00)
[2019-06-25] MEDS: SITAGLIPTIN PHOS 100 MG TAB PO SCH (09:00)
[2019-06-25] MEDS: VALSARTAN 160 MG TAB PO SCH (09:00)
[2019-06-25] MEDS: DOXAZOSIN 4 MG TAB PO SCH (09:00)
[2019-06-25] MEDS: APIXABAN 5 MG TABLET PO SCH (09:00)
[2019-06-25] MEDS: FE SULF/FA/VIT B COMP & C TAB PO SCH (09:00)
[2019-06-25] MEDS: HYDRALAZINE HCL 25 MG TABLET PO SCH (09:00)
[2019-06-25] MEDS: MULTIVIT W/ MINERAL TAB PO SCH (09:00)
[2019-06-25] MEDS: ISOSORBIDE MONO SR 60 MG TAB PO SCH (09:00)
[2019-06-25] MEDS: DULOXETINE 30 MG CAP PO SCH (09:00)
[2019-06-25] MEDS: FOLBIC 1 TAB PO SCH (09:00)
[2019-06-25] MEDS: FUROSEMIDE 40 MG TABLET PO SCH (09:00)
[2019-06-25] MEDS: POLYETHYL GLY 3350 17 GM/DOSE PO SCH (09:00)
[2019-06-25] MEDS: ASCORBIC ACID 500 MG TABLET PO SCH (09:00)
[2019-06-25] MEDS: MAGNESIUM OXIDE 400 MG TAB PO SCH (09:00)
[2019-06-25] MEDS: SOLIFENACIN SUCCIN 5 MG TAB PO SCH (09:00)
[2019-06-25] MEDS: carvediloL 25 MG TAB PO SCH (09:00)
[2019-06-25] MEDS: VITAMIN E 400 IU CAP PO SCH (09:00)
[2019-06-25] MEDS: SOD FERRIC GLUC COMPLX/SUCROSE 250 MG in NA CHLORIDE 0.9% 250 ML IV SCH (09:25)
[2019-06-25 11:00] VITALS: O2SAT 94
[2019-06-25 12:23] VITALS: BP 182/66; TEMP 98.1
--- NOTE | 2019-06-26 03:57 | DS ---
Date of Discharge: 06/25/2019 Disposition: Discharged to go to [facility]. Physical Examination: HEENT: Unremarkable. Lungs: Clear to auscultation. Heart: Heart sounds normal. Abdomen: Soft, bowel sounds normal. No guarding, rigidity, tenderness, or distention. Extremities: No leg edema. Laboratory Data: Upon admission on 06/15/2019, white count was 7.2, hemoglobin 10.9, platelets 418. On 06/22/2019, white count 9.9, hemoglobin 8, platelets 327. Lowest hemoglobin was 7.9, and she did not require any blood transfusion. Last chemistry on 06/22/2019, sodium 139, potassium 4, chloride 106, bicarb 26, BUN 23, creatinine 0.66, glucose 141, magnesium 1.9. Hospital Course: An 84-year-old female patient, who was living at home with her sister and brother-i n-law here in [facility], was brought into emergency room with complaints of feeling weak and hurting. Ple ase see dictated H and P for more information. The patient was brought into emergency room after I t alked to patient's family. BEST/MODL Voice ID: [id number] Report ID: [id number]
--- NOTE | 2019-06-26 04:45 | DS ---
Date of Discharge: 06/25/2019 Hospital Course: This 84-year-old pleasant female patient, who was living at home with her sister an d lfretyc-vy-hnv, was brought into the emergency room with complaints of feeling weak and hurting. S he please see dictated H and P for more details. The patient's family contacted me and they were adv ised to bring patient to emergency room. After she was evaluated in the ER, she was admitted to the hospital. Patient was admitted to the hospital with urinary tract infection, hypokalemia, generalize d weakness, debility, and hypomagnesemia. Her electrolytes were corrected. She was given empiric IV antibiotics. Urinalysis was abnormal, but unfortunately, urine culture was not sent from emergency room prior to starting antibiotics. She finished her IV antibiotic course during this hospitalizatio n. She was complaining of significant pain in her lower back and both legs. X-ray of the lumbosacra l spine and bilateral hip, pelvis was ordered. X-ray showed evidence of osteoarthritis of mild degre e in her hips, but her lumbar spine showed advanced degenerative joint disease. On basis of the hist ory provided by family member that she keeps on leaning more and more forward while walking, I suspec t that she has lumbar spinal stenosis due to underlying degenerative joint disease. CAT scan of the abdomen done in the emergency room was unremarkable for any acute change and the patient had IVC filt er placed several years ago in [place] prior to knee surgery and her IVC filter, initially her surgeo ns thought that they would remove it, but later on they decided not to remove it and on the CAT scan we did, does show that one of the leg of the IVC filter had protruded outside the lumen. There was n o acute finding related to this. I did inform the patient and the patient's family member about it a nd suggested that they should take her back for followup with her farm advisor and cotton agent on a n outpatient basis to get the recommendation on this abnormal finding. She has large abdominal wall hernia, but there was no evidence of any obstruction. She had some constipation problem and that did get resolved with help of laxatives. Physical therapy was consulted. We noted during this hospital ization that the patient was very noncompliant with physical therapy every time therapist went into t he room, for one or other reason she did not participate and did not do any physical therapy at all. She did same thing with medications also including her laxative medication. Social Service was cons ulted to assist with chcf facility placement, but in the view that she has not participate d at all with physical therapy, I did discuss details with the patient's family member and informed t hat there is a good possibility insurance may not even approve chcf facility since the pat christiane has not shown any participation at all and for chcf facility Social Service was celeste you to take her to [facility]. Considering she is not wanting to do any therapy, family said that her choice of nursing facility is [facility] and she will go there as a private pay and the patient's sister had shown some interest about hospice care as it appears that she just d oes not have any will to live, even in hospital 2-3 times she told me that why do I not let her go ah ead and . She had episode of choking yesterday, which cleared up with some coughing and this was noted while she was trying to swallow in the supine position. I talked to her and I even had nursing staff talked to her and advised her that she must sit upright at 90-degree angle while eating and sw allowing food and when I talked to her today she flatly refused it and told me "I would rather ." I ordered CAT scan of her thoracic and lumbar spine today and she refused to go down further testing . She is extremely difficult to manage as she is not compliant with recommendation and finally after Social Service made arrangements for her to go to [facility], today she was discharged the re. I have asked the charge nurse to communicate with Social Service to see if the patient and famil y would like to go ahead and consider hospice care once she gets to that nursing facility and that ar rangements can be made at the [facility] when she gets there. Final Diagnoses: 1.Urinary tract infection. 2.Hypokalemia. 3.Hypomagnesemia. 4.Anemia. 5.Generalized weakness. 6.Debility. 7.Lumbar spinal stenosis. 8.Osteoarthritis, multiple sites. 9.Secondary pulmonary hypertension. 10.Paroxysmal atrial fibrillation. 11.Chronic anticoagulation therapy. 12.Hypertension. 13.Type 2 diabetes mellitus. 14.Hyperlipidemia. 15.Osteoarthritis, multiple sites. 16.Gastroesophageal reflux disease. 17.Diverticulosis. 18.Constipation. 19.Status post IVC filter. BEST/MODL Voice ID: [id number] Report ID: [id number]
== END 2019-06-25 14:44 | DRG 690 ==
LOC: ER 17:13 → ERHOLD 19:36 → 4TH 06-16 14:00
PROVIDERS: ADMIT Internal Medicine; ATTEND Internal Medicine
DX: N39.0 Urinary tract infection, site not specified (principal); E87.6 Hypokalemia; E83.42 Hypomagnesemia; D64.9 Anemia, unspecified; R53.1 Weakness; R53.81 Other malaise; M48.061 Spinal stenosis, lumbar region without neurogenic claudication; M19.90 Unspecified osteoarthritis, unspecified site; I27.20 Pulmonary hypertension, unspecified; I48.0 Paroxysmal atrial fibrillation; I10 Essential (primary) hypertension; E11.9 Type 2 diabetes mellitus without complications; E78.5 Hyperlipidemia, unspecified; K21.9 Gastro-esophageal reflux disease without esophagitis; K57.90 Diverticulosis of intestine, part unspecified, without perforation or abscess without bleeding; K43.9 Ventral hernia without obstruction or gangrene; K59.00 Constipation, unspecified; Z79.01 Long term (current) use of anticoagulants; Z91.19 Patient's noncompliance with other medical treatment and regimen
CPT/HCPCS: 36415; 51702; 71045; 72100; 72170; 74018; 74176; 80048; 80076; 81001; 81003; 82274; 82947; 83690; 83735; 83880; 84132; 84484; 85025; 85610; 86850; 86900; 86901; 87086; 87088; 93005; 96361; 96365; 96367; 96375; 97110; 97112; 97116; 97161; 97530; 99285; C9113; J0696; J2916; J3475; J7030